=== PATIENT | female | born 1965 | race Caucasian/White ===

== ENCOUNTER 2017-11-18 06:35 | Inpatient (IN) | payer MEDICAID ==
--- NOTE | 2017-11-18 07:03 | Emergency Department Record ---
History of Present Illness - General Chief Complaint: Abdominal Pain Stated Complaint: ABDOMINAL PAIN Time Seen by Provider: 11/18/17 07:01 Source: Patient Mode of Arrival: Ambulatory Limitations: No limitations - History of Present Illness Initial Comments: The patient is here due to a 3 hour hx of sharp stabbing LLQ AP. The onset was during a colon prep for a colonoscopy that she has scheduled for 10am today. The patient did have some vomiting with it also. She denies any Cp, SOB, TORREY, or fever. The patient has had a recent hx of sigmoid diverticulitis and is being treated by Dr. Higginbotham. Complaint: Abdominal pain Onset/Timin -: Hour(s) Location: LLQ Radiation: None Severity: Mild Severity scale (1-10): 3 Quality: Stabbing Consistency: Getting worse Improves With: Rest Worsens With: Movement Associated Symptoms: Denies other symptoms - Related Data LMP (females 10-50): other Allergies Allergy/AdvReac Type Severity Reaction Status Date / Time codeine Allergy ALTERED Verified 11/18/17 06:45 MENTAL STATUS Travel Screening - Travel/Exposure Within Last 30 Days Have you traveled within the last 30 days?: No - Travel/Exposure Within Last Year Have you traveled outside the [place] in the last year?: No - Additonal Travel Details Have you been exposed to anyone with a communicable illness?: No - Travel Symptoms Symptom Screening: None Review of Systems Constitutional: Denies: Chills, Fever Eyes: Denies: Eye discharge ENT: Denies: Congestion Respiratory: Denies: Cough, Dyspnea Past Medical History - SOCIAL HISTORY Smoking Status: Never smoker Alcohol Use: Rare Drug Use: None - RESPIRATORY Hx Respiratory Disorders: No - CARDIOVASCULAR Hx Cardio Disorders: No - NEURO Hx Neuro Disorders: No - GI Hx GI Disorders: Yes Hx Diverticulitis: Yes - Hx Genitourinary Disorders: No - ENDOCRINE Hx Endocrine Disorders: No - MUSCULOSKELETAL Hx Musculoskeletal Disorders: No - PSYCH Hx Psych Problems: No - HEMATOLOGY/ONCOLOGY Hx Hematology/Oncology Disorders: No Family Medical History Any Significant Family History?: No Physical Exam - General General Appearance: Alert, Oriented x3, Cooperative, No acute distress - Head Head exam: Atraumatic, Normocephalic, Normal inspection - Eye Eye exam: Normal appearance, PERRL - Neck Neck exam: Normal inspection, Full ROM. negative: Tenderness - Respiratory Respiratory exam: Normal lung sounds bilaterally. negative: Respiratory distress - Cardiovascular Cardiovascular Exam: Regular rate, Normal rhythm, Normal heart sounds - GI/Abdominal GI/Abdominal exam: Soft, Tenderness (There is significant LLQ tenderness.). negative: Distended, Rebound, Rigid - Extremities Extremities exam: Normal inspection, Full ROM, Normal capillary refill. negative: Tenderness - Neurological Neurological exam: Alert. negative: Motor sensory deficit Course Vital Signs 11/18/17 06:40 Temperature 98.7 F Pulse Rate [ 86 Pulse Ox Probe] Respiratory 20 Rate Blood Pressure 101/62 [Left Arm] Pulse Ox 98 - Reevaluation(s) Reevaluation #1: The patient is resting comfortably and states the pain is improved. We are waiting on her CT results at this time. 11/18/17 08:15 Reevaluation #2: The patient is doing well at this time. Her pain is controlled. I did consult with Dr. Higginbotham and he does agree with the plan to admit the patient to [facility] on IV Abx's. He will consult and see the patient tomorrow. 11/18/17 08:59 Medical Decision Making - Data Complexity MDM Data: Labs Ordered and/or Reviewed, X-Ray Ordered and/or Reviewed - Lab Data Result diagrams: 11/18/17 07:12 11/18/17 07:12 - Radiology Data Radiology results: Report reviewed (CT: Sigmoid Diverticulitis, inflammatory changes LLQ, Small abscess and phlegmon. No significant change from 11/02. ) Disposition Disposition: Admit Clinical Impression: Diverticulitis large intestine Qualifiers: Diverticulitis bleeding: without bleeding Diverticulitis complication: with abscess Qualified Code(s): K57.20 - Diverticulitis of large intestine with perforation and abscess without bleeding Disposition: Still a Patient at [facility] Decision to Admit: Admit from ER Decision to Admit Date: 11/18/17 Decision to Admit Time: 09:09 Accepting Physician: Bernabe Mccann Discussed w/Accepting Physician: 09:09 Condition: (2) Stable Time of Disposition: : Quality - Quality Measures Quality Measures: N/A - Blood Pressure Screening View Details: Yes Does Patient Have Any of the Following: No Blood Pressure Classification: Normal BP Reading Systolic Measurement: 103 Diastolic Measurement: 74 Screening for High Blood Pressure: < Normal BP, F/U Not Required > [[id number]]
[2017-11-18] MEDS ORDERED: 0.9 % SODIUM CHLORIDE 1,000 ML BAG IV ONE ×2 (07:05→08:35)
[2017-11-18] MEDS ORDERED: ONDANSETRON HCL IV 4 MG/2 ML VIAL IV ONE (07:05)
[2017-11-18] MEDS ORDERED: HYDROMORPHONE HCL 2 MG/ML VIAL IVP ONE (07:07)
[2017-11-18 07:29] LABS: BASO % 0.1 % (0-6); EOS % 0.2 % (0-6); HEMATOCRIT 37.4 % (35.0-47.0); HEMOGLOBIN 12.4 gm/dl (11.6-16.0); LYMPH % 5.2 % (16-45); MEAN CELL VOLUME 90.8 fl (81-97); MEAN CORPUSCULAR HEMOGLOBIN 30.1 pg (27-33); MEAN CORPUSCULAR HGB CONC 33.2 g/dl (32-36); MEAN PLATELET VOLUME 9.7 fl (7.4-10.4); MONO % 5.9 % (0-9); PLATELET COUNT 377 K/uL (130-400); RED BLOOD COUNT 4.12 M/uL (3.80-5.40); RED CELL DISTRIBUTION WIDTH 13.6 % (11.5-14.5); WHITE BLOOD COUNT W/O DIFF 14.8 K/uL (4.2-12.2)
[2017-11-18 07:36] LABS: BLOOD UREA NITROGEN 7 mg/dL (6-20); CREATININE 0.6 mg/dL (0.5-0.9); EST GLOMERULAR FILTRATION RATE > 60 mL/min
[2017-11-18 07:37] LABS: TOTAL PROTEIN 7.7 g/dL (6.6-8.7)
[2017-11-18 07:39] LABS: GLUCOSE,RANDOM 113 mg/dL (74-109)
[2017-11-18 07:42] LABS: ALB/GLOB RATIO 1.1 (1.1-1.8); ALKALINE PHOSPHATASE 84 U/L (35-104); ALT/SGPT 18 U/L (<33); AST/SGOT 19 U/L (10.0-35.0)
[2017-11-18] MEDS ORDERED: ERTAPENEM SODIUM 1 G in 0.9 % SODIUM CHLORIDE 100ML 100 ML IVPB ONE (08:22)
[2017-11-18] MEDS ORDERED: PIPERACILLIN SODIUM/TAZOBACTAM 4.5 GM in 0.9 % SODIUM CHLORIDE 100ML 100 ML IVPB ONE (08:24)
[2017-11-18 09:47] LABS: URINE APPEARANCE CLEAR; URINE BILIRUBIN NEGATIVE (NEGATIVE); URINE BLOOD NEGATIVE (NEGATIVE); URINE COLOR YELLOW; URINE GLUCOSE (UA) NEGATIVE (NEGATIVE); URINE KETONE 15 mg/dL (NEGATIVE); URINE LEUKOCYTE ESTERASE NEGATIVE (NEGATIVE); URINE NITRITE NEGATIVE (NEGATIVE); URINE PROTEIN NEGATIVE (NEGATIVE); URINE UROBILINOGEN 0.2 E.U./dL (0.20 - 1.00)
[2017-11-18] MEDS ORDERED: ONDANSETRON HCL IV 4 MG/2 ML VIAL IVP PRN (10:08)
--- NOTE | 2017-11-18 10:45 | History & Physical ---
History of Present Illness - Date of Service Date of Service for History & Physical: 11/18/17 - History of Present Illness Admitting Diagnosis: 1. Acute Diverticulitis with Abscess History of Present Illness: Mrs. Glover is a 52 year-old female who presented to the ED this morning with complaint of sharp stabbing left lower quadrant abdominal pain for 3 hours. Onset was during her colon prep for colonoscopy that was scheduled for [address] Higginbotham. She did also report some vomiting. She denies chest pain, shortness of breath, and fever. She was recently diagnosed with diverticulitis on 10/13 and treated with cipro and flagyl, CT was repeated on . Her history includes diverticulosis and depression. In the ED, her vital signs were stable. Labs revealed WBC of 14.8, otherwise unremarkable. Abdominal CT revealed sigmoid diverticulitis, inflammatory changes to LLQ, small abscess and phlegmon No significant change from CT on 11/02. Pt. was admitted for IV antibiotics and Dr. Higginbotham was consulted by Dr. Parson and he will see pt. on 11/19/17. 11/18/17: Pt. is resting comfortably in bed. She reports improved pain (with IV dilaudid use). She has not vomited since presenting to the ED. She is tolerating clear liquids. VSS. Will plan to continue IV abx, monitoring of vital signs and labs, and surgical consult with Dr. Higginbotham tomorrow morning. PCP: Dr. Kidd General Surgery: Dr. Higginbotham Travel Screening - Travel/Exposure Within Last 30 Days Have you traveled within the last 30 days?: No - Travel/Exposure Within Last Year Have you traveled outside the [place] in the last year?: No - Additonal Travel Details Have you been exposed to anyone with a communicable illness?: No - Travel Symptoms Symptom Screening: None Review of Systems Constitutional: Denies: Chills, Fever Eyes: Denies: Eye discharge ENT: Denies: Congestion Respiratory: Denies: Cough, Dyspnea Past Medical History - SOCIAL HISTORY Smoking Status: Never smoker Alcohol Use: Rare Drug Use: None - RESPIRATORY Hx Respiratory Disorders: No - CARDIOVASCULAR Hx Cardio Disorders: No - NEURO Hx Neuro Disorders: No - GI Hx GI Disorders: Yes Hx Diverticulitis: Yes - Hx Genitourinary Disorders: No - ENDOCRINE Hx Endocrine Disorders: No - MUSCULOSKELETAL Hx Musculoskeletal Disorders: No - PSYCH Hx Psych Problems: No - HEMATOLOGY/ONCOLOGY Hx Hematology/Oncology Disorders: No Family Medical History Any Significant Family History?: No H&P Meds/Allergies - Allergies Allergies: Allergies Allergy/AdvReac Type Severity Reaction Status Date / Time codeine Allergy ALTERED Verified 11/18/17 06:45 MENTAL STATUS - Active Medications Active Medications: Current Medications Bupropion HCl (Wellbutrin Sr) 300 mg PO DAILY [facility] Hydromorphone HCl (Dilaudid) 1 mg IV Q4H PRN PRN Reason: Pain - General Sodium Chloride () 1,000 mls @ 100 mls/hr IV .Q10H PRN PRN Reason: LARGE VOLUME IV Piperacillin Sod/Tazobactam (Sod 4.5 gm/ Sodium Chloride) 100 mls @ 200 mls/hr IVPB Q8H [facility] Ondansetron HCl (Zofran) 4 mg IVP Q4H PRN PRN Reason: NAUSEA Pantoprazole Sodium (Protonix Iv) 40 mg IV DAILY [facility] Sertraline HCl (Zoloft) 50 mg PO DAILY [facility] Physical Exam - Vital Signs Vital Signs: Vital Signs - Last 24 Hrs Temp Pulse Pulse Resp BP BP Pulse Ox 11/18/17 10:10 103 H 18 103/74 97 11/18/17 08:37 107 H 18 110/68 95 11/18/17 06:40 98.7 F 86 20 101/62 98 - General General Appearance: Alert, Oriented x3, Cooperative, No acute distress Limitations: No limitations - Head Head exam: Atraumatic, Normocephalic, Normal inspection - Eye Eye exam: Normal appearance, PERRL - Neck Neck exam: Normal inspection, Full ROM. negative: Tenderness - Respiratory Respiratory exam: Normal lung sounds bilaterally. negative: Respiratory distress - Cardiovascular Cardiovascular Exam: Regular rate, Normal rhythm, Normal heart sounds - GI/Abdominal GI/Abdominal exam: Soft, Tenderness (There is significant LLQ tenderness.). negative: Distended, Rebound, Rigid - Extremities Extremities exam: Normal inspection, Full ROM, Normal capillary refill. negative: Tenderness - Neurological Neurological exam: Alert. negative: Motor sensory deficit Results - Labs Result Diagrams: 11/18/17 07:12 11/18/17 07:12 Labs Last 24 Hours: Laboratory Results - last 24 hr 11/18/17 11/18/1711/18/18 07:05 07:07 07:12 WBC 14.8 H RBC 4.12 Hgb 12.4 Hct 37.4 MCV 90.8 MCH 30.1 MCHC 33.2 RDW 13.6 Plt Count 377 MPV 9.7 Neutrophils % 92.0 H Band Neutrophils % 0.0 Lymphocytes % 5.2 L Monocytes % 5.9 Eosinophils % 0.2 Basophils % 0.1 Lymphocytes 5.0 L Monocytes 3.0 Basophils 0.0 Eosinophil Count 0.0 Sodium Potassium Chloride Carbon Dioxide Anion Gap BUN Creatinine Estimated GFR Random Glucose Calcium Total Bilirubin AST ALT Alkaline Phosphatase Total Protein Albumin Globulin Albumin/Globulin Ratio Lipase Urine Color Yellow Urine Appearance Clear Urine pH 7.0 Ur Specific [place] <= 1.005 Urine Protein Negative Urine Glucose (UA) Negative Urine Ketones 15 mg/dl H Urine Blood Negative Urine Nitrite Negative Urine Bilirubin Negative Urine Urobilinogen 0.2 Ur Leukocyte Esterase Negative Urine HCG, Qual Negative 11/18/17 11/18/17 07:12 07:12 WBC RBC Hgb Hct MCV MCH MCHC RDW Plt Count MPV Neutrophils % Band Neutrophils % Lymphocytes % Monocytes % Eosinophils % Basophils % Lymphocytes Monocytes Basophils Eosinophil Count Sodium 138 Potassium 4.9 H Chloride 95 L Carbon Dioxide 22.0 Anion Gap 21.0 H BUN 7 Creatinine 0.6 Estimated GFR > 60 Random Glucose 113 H Calcium 9.0 Total Bilirubin 0.70 AST 19 ALT 18 Alkaline Phosphatase 84 Total Protein 7.7 Albumin 4.0 Globulin 3.7 Albumin/Globulin Ratio 1.1 Lipase 20 Urine Color Urine Appearance Urine pH Ur Specific [place] Urine Protein Urine Glucose (UA) Urine Ketones Urine Blood Urine Nitrite Urine Bilirubin Urine Urobilinogen Ur Leukocyte Esterase Urine HCG, Qual VTE H&P Assessment - Risk for VTE Risk for VTE: Yes Risk Level: Low Risk Assessment Date: 11/18/17 Risk Assessment Time: 10:38 VTE Orders Placed or Will Be Placed: Yes Plan - Inpatient Certification Inpatient Certification: Admit to inpatient care: Based on my medical assessment, after consideration of patient's risk factors (age, co-morbidities and patient presenting symptoms and acuity), I expect that this patient will remain in the hospital greater than or equal to two midnights and that the services needed warrant inpatient care because: Patient Risk Factors: [failed outpatient antibiotic treatment] Estimated length of stay: 48-96 hours. The patient may reasonably be expected to be discharged or transferred to a hospital within 96 hours after admission to [facility]. Services needed: [IV antibiotics, surgical consult] Post hospital care (if known): [] I certify that my determination is in accordance with my understanding of Medicare requirements for reasonable and necessary inpatient services. 11/18/17 10:45 - Detailed Diagnosis and Plan (1) Diverticulitis large intestine Current Visit: Yes Status: Acute Qualifiers: Diverticulitis bleeding: without bleeding Diverticulitis complication: with abscess Qualified Code(s): K57.20 - Diverticulitis of large intestine with perforation and abscess without bleeding Base Code: K57.32 - DVTRCLI OF LG INT W/O PERFORATION OR ABSCESS W/O BLEEDING Comment: 11/18/17: -CT revealed sigmoid diverticulitis, inflammatory changes in LLQ, small abscess , no change from 11/02 -Dr. Higginbotham consulted, he will see pt. on 11/19/17. -Treating with IV abx: 4.5gm zosyn q8h -Zofran for nausea and dilaudid for pain -Clear liquid diet (2) At risk for deep venous thrombosis Current Visit: Yes Status: Acute Base Code: Z91.89 - OTH PERSONAL RISK FACTORS, NOT ELSEWHERE CLASSIFIED Comment: 11/18/17: -Lovenox 40mg SC ordered for DVT prophylaxis (3) Full code status Current Visit: Yes Status: Acute Base Code: Z78.9 - OTHER SPECIFIED HEALTH STATUS Comment: 11/18/17: -Pt. is a full code
[2017-11-18] MEDS: BUPROPION HCL 150 MG TAB.SR.12H PO SCH (12:14)
[2017-11-18] MEDS: PANTOPRAZOLE SODIUM IV 40 MG VIAL IV SCH (12:14)
[2017-11-18] MEDS: SERTRALINE HCL 50 MG TABLET PO SCH (12:14)
[2017-11-18] MEDS: 0.9 % SODIUM CHLORIDE 1000ML 1,000 ML IV PRN ×2 (12:15→20:52)
[2017-11-18] MEDS: PIPERACILLIN SODIUM/TAZOBACTAM 4.5 GM in 0.9 % SODIUM CHLORIDE 100ML 100 ML IVPB SCH (16:25)
[2017-11-18] MEDS: HYDROMORPHONE HCL 2 MG/ML VIAL IV PRN (16:26)
[2017-11-18] MEDS: ACETAMINOPHEN 500 MG TABLET PO PRN (22:06)
[2017-11-19] MEDS: PIPERACILLIN SODIUM/TAZOBACTAM 4.5 GM in 0.9 % SODIUM CHLORIDE 100ML 100 ML IVPB SCH ×3 (00:05→17:00)
[2017-11-19 06:42] LABS: BASO % 0.3 % (0-6); EOS % 0.9 % (0-6); GRAN % 75.8 % (47-80); HEMOGLOBIN 10.3 gm/dl (11.6-16.0); LYMPH % 13.4 % (16-45); MEAN CELL VOLUME 93.2 fl (81-97); MEAN CORPUSCULAR HGB CONC 31.2 g/dl (32-36); MEAN PLATELET VOLUME 9.6 fl (7.4-10.4); MONO % 9.6 % (0-9); PLATELET COUNT 316 K/uL (130-400); RED BLOOD COUNT 3.54 M/uL (3.80-5.40); RED CELL DISTRIBUTION WIDTH 13.8 % (11.5-14.5); WHITE BLOOD COUNT W/O DIFF 7.7 K/uL (4.2-12.2)
[2017-11-19 07:03] LABS: ALB/GLOB RATIO 1.1 (1.1-1.8); ALBUMIN 3.3 g/dL (4.0-5.0); ALKALINE PHOSPHATASE 67 U/L (35-104); ALT/SGPT 13 U/L (<33); AST/SGOT 11 U/L (10.0-35.0); BLOOD UREA NITROGEN 4 mg/dL (6-20); CREATININE 0.6 mg/dL (0.5-0.9); EST GLOMERULAR FILTRATION RATE > 60 mL/min; GLUCOSE,RANDOM 100 mg/dL (74-109); TOTAL PROTEIN 6.3 g/dL (6.6-8.7)
--- NOTE | 2017-11-19 07:22 | CT SCAN REPORT ---
EXAM: CT OF THE ABDOMEN AND PELVIS WITHOUT CONTRAST HISTORY: LOWER ABDOMINAL PAIN. TECHNIQUE: CT of the abdomen and pelvis was performed without oral or IV contrast. This limits evaluation of bowel and solid visceral organs. Comparison: 11/02/17 CT. FINDINGS: Limited evaluation of the lung bases is unremarkable. The osseous structures are grossly intact. Limited evaluation of the liver, spleen, adrenal glands, pancreas, and kidneys is unremarkable. The gallbladder is present. Liquified stool throughout the colon. Subjective wall thickening of the sigmoid colon. Multiple sigmoid diverticula. There is surrounding inflammatory change consistent with diverticulitis. Probable small abscess containing a single focus of air near the sigmoid colon is redemonstrated. This measures approximately 2.2 x 1.7 cm. There is some surrounding phlegmon as well. There is no free intraperitoneal air. Trace of free fluid is noted. Normal appendix. IMPRESSION: SIGMOID DIVERTICULITIS PERSISTS. SUSPECTED SMALL ABSCESS IS ALSO REDEMONSTRATED , SIMILAR TO THE PRIOR EXAM WITH SURROUNDING PHLEGMON. TRACE OF FREE FLUID. NO FREE INTRAPERITONEAL AIR. JOB NUMBER: [id number] MTDD
[2017-11-19] MEDS: 0.9 % SODIUM CHLORIDE 1000ML 1,000 ML IV PRN ×2 (08:02→20:11)
[2017-11-19] MEDS: HYDROMORPHONE HCL 2 MG/ML VIAL IV PRN ×3 (08:09→20:46)
[2017-11-19] MEDS: BUPROPION HCL 150 MG TAB.SR.12H PO SCH (10:10)
[2017-11-19] MEDS: SERTRALINE HCL 50 MG TABLET PO SCH (10:10)
[2017-11-19] MEDS: PANTOPRAZOLE SODIUM IV 40 MG VIAL IV SCH (10:10)
--- NOTE | 2017-11-19 17:43 | Physician Progress Note ---
Subjective - Date Date of Physician Progress Note: 11/19/17 - Subjective Subjective Comment: LLQ abdominal pain and diarrhea Pt. continues to have several "explosive" loose stools, she tolerating her clear liquid diet well and denies nausea. VSS, labs improving. Pain is mainly LLQ of abdomen. Dr. Higginbotham did review CT scans and recommends slowly advancing diet and trying PO pain medications. (tylenol 1000mg tid prn pain ordered) Location: Abdomen Radiation: Non-Radiating Improves with: Medication Worsens with: Eating Associated symptoms: Other (Diarrhea) Objective - Vital Signs Vital Signs: Vital Signs - Last 24 Hrs Temp Pulse Resp BP BP Pulse Ox 11/19/17 16:00 99.0 F 93 H 18 106/77 95 11/19/17 12:00 98.2 F 97 H 18 119/82 98 11/19/17 08:37 16 11/19/17 08:00 99.3 F 84 18 112/73 96 11/19/17 04:00 97.9 F 70 16 102/67 99 11/19/17 00:00 98.8 F 82 16 99/64 93 L 11/18/17 20:00 99.3 F 88 16 99/69 93 L - General General Appearance: Alert, Oriented x3, Cooperative, No acute distress Limitations: No limitations - Head Head exam: Atraumatic, Normocephalic, Normal inspection - Eye Eye exam: Normal appearance, PERRL - Neck Neck exam: Normal inspection, Full ROM. negative: Tenderness - Respiratory Respiratory exam: Normal lung sounds bilaterally. negative: Respiratory distress - Cardiovascular Cardiovascular Exam: Regular rate, Normal rhythm, Normal heart sounds - GI/Abdominal GI/Abdominal exam: Soft, Tenderness (There is significant LLQ tenderness.). negative: Distended, Rebound, Rigid - Extremities Extremities exam: Normal inspection, Full ROM, Normal capillary refill. negative: Tenderness - Neurological Neurological exam: Alert. negative: Motor sensory deficit Assessment and Plan - Assessment and Plan (1) Diverticulitis large intestine Current Visit: Yes Status: Acute Qualifiers: Diverticulitis bleeding: without bleeding Diverticulitis complication: with abscess Qualified Code(s): K57.20 - Diverticulitis of large intestine with perforation and abscess without bleeding Base Code: K57.32 - DVTRCLI OF LG INT W/O PERFORATION OR ABSCESS W/O BLEEDING Comment: 11/19/17: -CT revealed sigmoid diverticulitis, inflammatory changes in LLQ, small abscess , no change from 11/02 -Dr. Higginbotham consulted, he reviewed CT and recommends slowly advancing diet as tolerated -Treating with IV abx: 4.5gm zosyn q8h -Zofran for nausea and dilaudid for pain, plan to encourage tylenol 1000mg tid for pain before dilaudid -Clear liquid diet (2) At risk for deep venous thrombosis Current Visit: Yes Status: Acute Base Code: Z91.89 - OTH PERSONAL RISK FACTORS, NOT ELSEWHERE CLASSIFIED Comment: 11/19/17: -Lovenox 40mg SC ordered for DVT prophylaxis (3) Full code status Current Visit: Yes Status: Acute Base Code: Z78.9 - OTHER SPECIFIED HEALTH STATUS Comment: 11/19/17: -Pt. is a full code Results - Labs Result Diagrams: 11/19/17 06:15 11/19/17 06:15 Labs Last 24 Hours: Laboratory Results - last 24 hr 11/19/17 11/19/17 06:15 06:15 WBC 7.7 RBC 3.54 L Hgb 10.3 L Hct 33.0 L MCV 93.2 MCH 29.0 MCHC 31.2 L RDW 13.8 Plt Count 316 MPV 9.6 Gran % 75.8 Lymphocytes % 13.4 L Monocytes % 9.6 H Eosinophils % 0.9 Basophils % 0.3 Sodium 142 Potassium 3.5 Chloride 103 Carbon Dioxide 25.0 Anion Gap 14.0 BUN 4 L Creatinine 0.6 Estimated GFR > 60 Random Glucose 100 Calcium 8.1 L Total Bilirubin 0.50 AST 11 ALT 13 Alkaline Phosphatase 67 Total Protein 6.3 L Albumin 3.3 L Globulin 3.0 Albumin/Globulin Ratio 1.1 DVT/PE Assessment - Risk for VTE Risk for VTE: No Risk Level: Low Risk Assessment Date: 11/18/17 Risk Assessment Time: 10:38 VTE Orders Placed or Will Be Placed: Yes - Active Medicaitons Current Medications: Current Medications Acetaminophen (Tylenol 500mg Tab) 1,000 mg PO Q8H PRN PRN Reason: Pain - General Last Admin: 11/18/17 22:06 Dose: 1,000 mg Bupropion HCl (Wellbutrin Sr) 300 mg PO DAILY [facility] Last Admin: 11/19/17 10:10 Dose: 300 mg Hydromorphone HCl (Dilaudid) 1 mg IV Q4H PRN PRN Reason: Pain - General Last Admin: 11/19/17 14:09 Dose: 1 mg Sodium Chloride () 1,000 mls @ 100 mls/hr IV .Q10H PRN PRN Reason: LARGE VOLUME IV Last Admin: 11/19/17 08:02 Dose: 100 mls/hr Piperacillin Sod/Tazobactam (Sod 4.5 gm/ Sodium Chloride) 100 mls @ 200 mls/hr IVPB Q8H [facility] Last Admin: 11/19/17 17:00 Dose: 200 mls/hr Ondansetron HCl (Zofran) 4 mg IVP Q4H PRN PRN Reason: NAUSEA Pantoprazole Sodium (Protonix Iv) 40 mg IV DAILY [facility] Last Admin: 11/19/17 10:10 Dose: 40 mg Sertraline HCl (Zoloft) 50 mg PO DAILY [facility] Last Admin: 11/19/17 10:10 Dose: 50 mg AMI Plan - Labs Result Diagrams: 11/19/17 06:15 11/19/17 06:15
[2017-11-19] MEDS ORDERED: ENOXAPARIN 40 MG/0.4 ML SYR SQ SCH (22:00)
[2017-11-20] MEDS: PIPERACILLIN SODIUM/TAZOBACTAM 4.5 GM in 0.9 % SODIUM CHLORIDE 100ML 100 ML IVPB SCH ×2 (00:26→07:20)
[2017-11-20] MEDS: ACETAMINOPHEN 500 MG TABLET PO PRN ×2 (01:02→08:38)
[2017-11-20] MEDS: HYDROMORPHONE HCL 2 MG/ML VIAL IV PRN (01:03)
[2017-11-20 06:16] LABS: BASO % 0.3 % (0-6); EOS % 1.8 % (0-6); GRAN % 70.8 % (47-80); HEMATOCRIT 33.4 % (35.0-47.0); HEMOGLOBIN 10.5 gm/dl (11.6-16.0); LYMPH % 17.8 % (16-45); MEAN CELL VOLUME 92.8 fl (81-97); MEAN CORPUSCULAR HGB CONC 31.4 g/dl (32-36); MEAN PLATELET VOLUME 9.3 fl (7.4-10.4); MONO % 9.3 % (0-9); PLATELET COUNT 367 K/uL (130-400); RED CELL DISTRIBUTION WIDTH 13.9 % (11.5-14.5); WHITE BLOOD COUNT W/O DIFF 7.8 K/uL (4.2-12.2)
[2017-11-20 06:19] LABS: MEAN CORPUSCULAR HEMOGLOBIN 29.1 pg (27-33)
[2017-11-20 06:32] LABS: ALB/GLOB RATIO 1.1 (1.1-1.8); ALBUMIN 3.4 g/dL (4.0-5.0); ALKALINE PHOSPHATASE 70 U/L (35-104); ALT/SGPT 13 U/L (<33); AST/SGOT 12 U/L (10.0-35.0); BLOOD UREA NITROGEN 3 mg/dL (6-20); CREATININE 0.6 mg/dL (0.5-0.9); EST GLOMERULAR FILTRATION RATE > 60 mL/min; GLUCOSE,RANDOM 97 mg/dL (74-109); TOTAL PROTEIN 6.5 g/dL (6.6-8.7)
[2017-11-20] MEDS: 0.9 % SODIUM CHLORIDE 1000ML 1,000 ML IV PRN (07:21)
[2017-11-20] MEDS: SERTRALINE HCL 50 MG TABLET PO SCH (11:16)
[2017-11-20] MEDS: PANTOPRAZOLE SODIUM IV 40 MG VIAL IV SCH (11:16)
[2017-11-20] MEDS: BUPROPION HCL 150 MG TAB.SR.12H PO SCH (11:16)
--- NOTE | 2017-11-20 11:57 | Discharge Summary ---
Providers Discharge Summary Date: 11/20/17 Date of admission: 11/18/17 09:44 Expected Date of Discharge: 11/20/17 Attending physician: DEBORA KIDD Primary care physician: DEBORA KIDD Consults: Consult Orders 11/18/17 09:01 Consult NOW Consulting Provider: Spencer Higginbotham Physician Instructions: Please eval 11/19. Reason For Exam: Diverticulitis Physical Exam - Vital Signs Vital Signs: Vital Signs - Last 24 Hrs Temp Pulse Resp BP BP Pulse Ox 11/20/17 09:00 98.6 F 88 18 115/73 94 L 11/19/17 20:00 98.3 F 83 18 107/70 94 L 11/19/17 17:32 98.1 F 68 18 124/74 98 11/19/17 16:00 99.0 F 93 H 18 106/77 95 11/19/17 12:00 98.2 F 97 H 18 119/82 98 - General General Appearance: Alert, Oriented x3, Cooperative, No acute distress Limitations: No limitations - Head Head exam: Atraumatic, Normocephalic, Normal inspection - Eye Eye exam: Normal appearance, PERRL - Neck Neck exam: Normal inspection, Full ROM. negative: Tenderness - Respiratory Respiratory exam: Normal lung sounds bilaterally. negative: Respiratory distress - Cardiovascular Cardiovascular Exam: Regular rate, Normal rhythm, Normal heart sounds - GI/Abdominal GI/Abdominal exam: Soft, Hyperactive bowel sounds, Tenderness (There is significant LLQ tenderness.). negative: Distended, Rebound, Rigid - Extremities Extremities exam: Normal inspection, Full ROM, Normal capillary refill. negative: Tenderness - Neurological Neurological exam: Alert. negative: Motor sensory deficit Hospitalization - Hospitalization Admission Diagnosis: 1. Acute Diverticulitis with Abscess - Problem List/Discharge Diagnosis (1) Diverticulitis large intestine Current Visit: Yes Status: Acute Discharge Diagnosis: Diverticulitis bleeding: without bleeding Diverticulitis complication: with abscess Qualified Code(s): K57.20 - Diverticulitis of large intestine with perforation and abscess without bleeding Base Code: K57.32 - DVTRCLI OF LG INT W/O PERFORATION OR ABSCESS W/O BLEEDING Comment: 11/20/17: -CT revealed sigmoid diverticulitis, inflammatory changes in LLQ, small abscess , no change from 11/02 -Dr. Higginbotham consulted, he reviewed CT and recommends slowly advancing diet as tolerated -Pt. is tolerating advancing diet and tylenol 1000mg tid for pain management -Will plan to d/c home with continued abx therapy- cipro and flagyl (2) At risk for deep venous thrombosis Current Visit: Yes Status: Acute Base Code: Z91.89 - OTH PERSONAL RISK FACTORS, NOT ELSEWHERE CLASSIFIED Comment: 11/20/17: -No antithrombolic therapy indicated for discharge (3) Full code status Current Visit: Yes Status: Acute Base Code: Z78.9 - OTHER SPECIFIED HEALTH STATUS Comment: 11/20/17: -Pt. is a full code - Hospitalization Course Disposition: Home, Self-Care Hospital Course: Mrs. Glover is a 52 year-old female who presented to the ED this morning with complaint of sharp stabbing left lower quadrant abdominal pain for 3 hours. Onset was during her colon prep for colonoscopy that was scheduled for [address] Higginbotham. She did also report some vomiting. She denies chest pain, shortness of breath, and fever. She was recently diagnosed with diverticulitis on 10/13 and treated with cipro and flagyl, CT was repeated on . Her history includes diverticulosis and depression. In the ED, her vital signs were stable. Labs revealed WBC of 14.8, otherwise unremarkable. Abdominal CT revealed sigmoid diverticulitis, inflammatory changes to LLQ, small abscess and phlegmon No significant change from CT on 11/02. Pt. was admitted for IV antibiotics and Dr. Higginbotham was consulted by Dr. Parson and he will see pt. on 11/19/17. 11/18/17: Pt. is resting comfortably in bed. She reports improved pain (with IV dilaudid use). She has not vomited since presenting to the ED. She is tolerating clear liquids. VSS. Will plan to continue IV abx, monitoring of vital signs and labs, and surgical consult with Dr. Higginbotham tomorrow morning. 11/19/17: Pt. continues to have several "explosive" loose stools, she tolerating her clear liquid diet well and denies nausea. VSS, labs improving. Pain is mainly LLQ of abdomen. Dr. Higginbotham did review CT scans and recommends slowly advancing diet and trying PO pain medications. (tylenol 1000mg tid prn pain ordered). Pt. was also seen by furnace mechanic and dietary modifications/ management for diverticulitis were discussed. 11/20/17: Pt. is tolerating advancing diet without worsening pain. She has been using tylenol 1,000mg tid for pain management since yesterday. She does continue to have several loose stools with cramping, however, her labs and vital signs remain stable. Will plan to discharge home with continued abx therapy (cipro and flagyl). PCP: Dr. Kidd General Surgery: Dr. Higginbotham Procedures: Imaging and X-Rays 11/18/17 07:29 ABDOMEN/PELVIS WO CONTRAST [CT] Stat Abnormal Labs: Abnormal Lab Results 11/18/17 11/18/17 11/18/17 Range/Units 07:05 07:12 07:12 WBC 14.8 H (4.2-12.2) K/uL RBC (3.80-5.40) M/uL Hgb (11.6-16.0) gm/dl Hct (35.0-47.0) % MCHC (32-36) g/dl Neutrophils % 92.0 H (47-80) % Lymphocytes % 5.2 L (16-45) % Monocytes % (0-9) % Lymphocytes 5.0 L (16-45) % Potassium 4.9 H (3.4-4.5) mmol/L Chloride 95 L (98-107) mmol/L Anion Gap 21.0 H (7-16) BUN (6-20) mg/dL Random Glucose 113 H (74-109) mg/dL Calcium (8.6-10.0) mg/dL Total Protein (6.6-8.7) g/dL Albumin (4.0-5.0) g/dL Urine Ketones 15 mg/dl H (NEGATIVE) 11/19/17 11/19/17 11/20/17 Range/Units 06:15 06:15 06:00 WBC (4.2-12.2) K/uL RBC 3.54 L 3.60 L (3.80-5.40) M/uL Hgb 10.3 L 10.5 L (11.6-16.0) gm/dl Hct 33.0 L 33.4 L (35.0-47.0) % MCHC 31.2 L 31.4 L (32-36) g/dl Neutrophils % (47-80) % Lymphocytes % 13.4 L (16-45) % Monocytes % 9.6 H 9.3 H (0-9) % Lymphocytes (16-45) % Potassium (3.4-4.5) mmol/L Chloride (98-107) mmol/L Anion Gap (7-16) BUN 4 L (6-20) mg/dL Random Glucose (74-109) mg/dL Calcium 8.1 L (8.6-10.0) mg/dL Total Protein 6.3 L (6.6-8.7) g/dL Albumin 3.3 L (4.0-5.0) g/dL Urine Ketones (NEGATIVE) 11/20/17 Range/Units 06:00 WBC (4.2-12.2) K/uL RBC (3.80-5.40) M/uL Hgb (11.6-16.0) gm/dl Hct (35.0-47.0) % MCHC (32-36) g/dl Neutrophils % (47-80) % Lymphocytes % (16-45) % Monocytes % (0-9) % Lymphocytes (16-45) % Potassium 3.3 L (3.4-4.5) mmol/L Chloride (98-107) mmol/L Anion Gap (7-16) BUN 3 L (6-20) mg/dL Random Glucose (74-109) mg/dL Calcium 8.3 L (8.6-10.0) mg/dL Total Protein 6.5 L (6.6-8.7) g/dL Albumin 3.4 L (4.0-5.0) g/dL Urine Ketones (NEGATIVE) Condition at Discharge: (2) Stable Discharge Medications - Discharge Medications Prescriptions: Metronidazole 500 mg PO Q8HR 7 Days #21 tablet Ciprofloxacin HCl [Cipro] 500 mg PO Q12HR #14 tablet Home Medications: Ambulatory Orders Acetaminophen [Tylenol 500Mg Tab] 1,000 mg PO Q8H PRN tablet 11/20/17 [Last Taken Unknown] Ciprofloxacin HCl [Cipro] 500 mg PO Q12HR #14 tablet 11/20/17 [Last Taken Unknown] Metronidazole 500 mg PO Q8HR 7 Days #21 tablet 11/20/17 [Last Taken Unknown] Discharge Plan - Discharge Instructions Activity at Discharge: Increase Activity as Tolerated Diet at Discharge: Advance to Usual Diet Additional Instructions: Continue to advance diet slowly as tolerated Complete both courses of antibiotics- cipro and flagyl Follow up with Dr. Kidd within 7-10 days Return to the ED if your symptoms worsen, if you notice any blood in your stool , or if you have any chest pain Quality Measures - Quality Measures Quality Measures: Documentation of Current Medications in Medical Record, Screening for High Blood Pressure and F/U Documented - Current Medications Quality Measure: Measure #130: Documentation of Current Medications Documentation of Current Medications: <Current Medications Documented/Reviewed> [G8427] - Blood Pressure Screening Quality Measure: Screening for High Blood Pressure and Follow-Up Documented Does Patient Have Any of the Following: No Blood Pressure Classification: Normal BP Reading Systolic Measurement: 113 Diastolic Measurement: 68 Screening for High Blood Pressure: < Normal BP, F/U Not Required > [G8783] - Elder Abuse Suspicion Index EASI Reference Information: Phylicia GATES, Kimberly C, Sherice D, Lolly Swanson.Development and validation of a tool to assist physicians identification of elder abuse: The Elder Abuse Suspicion Index (EASI ). Journal of Elder Abuse and Neglect, 2008; 20 (3): 276-300.
[2017-11-20] MEDS ORDERED: METRONIDAZOLE 250 MG TABLET PO SCH (12:45)
[2017-11-20] MEDS ORDERED: CIPROFLOXACIN HCL 500 MG TABLET PO SCH (22:00)
== END 2017-11-20 13:08 | disposition home or self-care (01) | DRG 392 ==
LOC: ER 06:35 → MEDSURG 09:44
PROVIDERS: ADMIT Internal Medicine; ATTEND Internal Medicine
DX: K57.20 Diverticulitis of large intestine with perforation and abscess without bleeding (principal)
CPT/HCPCS: 74176; 80053; 81003; 81025; 83690; 85025; 85027; 96361; 96365; 96375; 99223; 99233; 99239; 99285; C9113; J1650; J2405; J2543; J3490; J7030

== ENCOUNTER 2017-11-25 13:22 | Emergency (ER) | payer MEDICAID ==
[2017-11-25] MEDS ORDERED: ONDANSETRON HCL IV 4 MG/2 ML VIAL IVP ONE (14:26)
[2017-11-25 14:44] LABS: BASO % 0.1 % (0-6); EOS % 0.1 % (0-6); HEMATOCRIT 41.4 % (35.0-47.0); LYMPH % 6.6 % (16-45); MEAN CELL VOLUME 89.2 fl (81-97); MEAN CORPUSCULAR HEMOGLOBIN 30.2 pg (27-33); MEAN CORPUSCULAR HGB CONC 33.8 g/dl (32-36); MEAN PLATELET VOLUME 8.5 fl (7.4-10.4); MONO % 4.3 % (0-9); PLATELET COUNT 565 K/uL (130-400); RED BLOOD COUNT 4.64 M/uL (3.80-5.40); RED CELL DISTRIBUTION WIDTH 14.7 % (11.5-14.5); WHITE BLOOD COUNT W/O DIFF 13.2 K/uL (4.2-12.2)
[2017-11-25 14:56] LABS: BLOOD UREA NITROGEN 8 mg/dL (6-20); CREATININE 0.5 mg/dL (0.5-0.9); EST GLOMERULAR FILTRATION RATE > 60 mL/min
[2017-11-25 14:59] LABS: GLUCOSE,RANDOM 120 mg/dL (74-109)
--- NOTE | 2017-11-25 17:19 | Emergency Department Record ---
History of Present Illness - General Chief Complaint: Abdominal Pain Stated Complaint: ABDOMINLA PAIN,NAUSEA,VOMITING Time Seen by Provider: 11/25/17 14:04 Source: Patient Mode of Arrival: Ambulatory Limitations: No limitations - History of Present Illness Initial Comments: pt was admitted for diverticulitis and is now on cipro and flagyl. she had an increase in her pain today along with n/v. she has been on her abx for a week. she also states her abd is distended MD Complaint: Abdominal pain Onset/Timin -: Days(s) Location: Diffuse Radiation: Back Severity: Moderate Severity scale (1-10): 6 Quality: Other Consistency: Constant Improves With: Nothing Worsens With: Nothing Associated Symptoms: Nausea, Vomiting - Related Data Patient : No Previous Rx's Medication Instructions Recorded Acetaminophen [Tylenol 500Mg Tab] 1,000 mg PO Q8H PRN tablet 11/20/17 Ciprofloxacin HCl [Cipro] 500 mg PO Q12HR #14 tablet 11/20/17 Metronidazole 500 mg PO Q8HR 7 Days #21 tablet 11/20/17 Allergies Allergy/AdvReac Type Severity Reaction Status Date / Time codeine Allergy ALTERED Verified 11/25/17 13:37 MENTAL STATUS Travel Screening - Travel/Exposure Within Last 30 Days Have you traveled within the last 30 days?: No - Travel/Exposure Within Last Year Have you traveled outside the [place] in the last year?: No - Additonal Travel Details Have you been exposed to anyone with a communicable illness?: No - Travel Symptoms Symptom Screening: None Review of Systems Reviewed: No additional complaints except as noted below Constitutional: Reports: As per HPI. Denies: Chills, Fever, Malaise, Night sweats, Weakness, Weight change Eyes: Reports: As per HPI. Denies: Eye discharge, Eye pain, Photophobia, Vision change ENT: Reports: As per HPI. Denies: Congestion, Dental pain, Ear pain, Epistaxis , Hearing loss, Throat pain Respiratory: Reports: As per HPI. Denies: Cough, Dyspnea, Hemoptysis, Stridor, Wheezes Cardiovascular: Reports: As per HPI. Denies: Arrhythmia, Chest pain, Dyspnea on exertion, Edema, Murmurs, Orthopnea, Palpitations, Paroxysmal nocturnal dyspnea, Rheumatic Fever, Syncope Endocrine: Reports: As per HPI. Denies: Fatigue, Heat or cold intolerance, Polydipsia, Polyuria Gastrointestinal: Reports: As per HPI, Abdominal pain, Nausea, Vomiting. Denies : Constipation, Diarrhea, Hematemesis, Hematochezia, Melena Genitourinary: Reports: As per HPI. Denies: Abnormal menses, Discharge, Dyspareunia, Dysuria, Frequency, Hematuria, Incontinence, Retention, Urgency Musculoskeletal: Reports: As per HPI. Denies: Arthralgia, Back pain, Gout, Joint swelling, Myalgia, Neck pain Skin: Reports: As per HPI. Denies: Bruising, Change in color, Change in hair/ nails, Lesions, Pruritus, Rash Neurological: Reports: As per HPI. Denies: Abnormal gait, Confusion, Headache, Numbness, Paresthesias, Seizure, Tingling, Tremors, Vertigo, Weakness Psychiatric: Reports: As per HPI. Denies: Anxiety, Auditory hallucinations, Depression, Homicidal thoughts, Suicidal thoughts, Visual hallucinations Hematological/Lymphatic: Reports: As per HPI. Denies: Anemia, Blood Clots, Easy bleeding, Easy bruising, Swollen glands Past Medical History - SOCIAL HISTORY Smoking Status: Never smoker Alcohol Use: Occasional Drug Use: None - RESPIRATORY Hx Respiratory Disorders: No - CARDIOVASCULAR Hx Cardio Disorders: No - NEURO Hx Neuro Disorders: No - GI Hx GI Disorders: Yes Hx Diverticulitis: Yes - Hx Genitourinary Disorders: No - ENDOCRINE Hx Endocrine Disorders: No - MUSCULOSKELETAL Hx Musculoskeletal Disorders: No - PSYCH Hx Psych Problems: No - HEMATOLOGY/ONCOLOGY Hx Hematology/Oncology Disorders: No Family Medical History Any Significant Family History?: No Physical Exam - General General Appearance: Alert, Oriented x3, Cooperative, Mild distress - Head Head exam: Normal inspection - Eye Eye exam: Normal appearance, PERRL, EOMI Pupils: Normal accommodation - ENT ENT exam: Normal exam, Mucous membranes moist, Normal external ear exam, Normal orophraynx Ear exam: Normal external inspection. negative: External canal tenderness Nasal Exam: Normal inspection. negative: Discharge, Sinus tenderness Mouth exam: Normal external inspection, Tongue normal Teeth exam: Normal inspection. negative: Dental caries Throat exam: Normal inspection. negative: Tonsillar erythema, Tonsillar exudate - Neck Neck exam: Normal inspection, Full ROM. negative: Tenderness - Respiratory Respiratory exam: Normal lung sounds bilaterally. negative: Respiratory distress - Cardiovascular Cardiovascular Exam: Normal rhythm, Normal heart sounds, Tachycardia - GI/Abdominal GI/Abdominal exam: Soft, Normal bowel sounds, Distended, Tenderness - Rectal Rectal exam: Deferred - exam: Deferred - Extremities Extremities exam: Normal inspection, Full ROM, Normal capillary refill. negative: Tenderness - Back Back exam: Reports: Normal inspection, Full ROM. Denies: Muscle spasm, Rash noted, Tenderness - Neurological Neurological exam: Alert, CN II-XII intact, Normal gait, Oriented X3 - Psychiatric Psychiatric exam: Normal affect, Normal mood - Skin Skin exam: Dry, Intact, Normal color, Warm Course Vital Signs 11/25/17 11/25/17 13:50 17:05 Temperature 98.4 F Pulse Rate 105 H Pulse Rate [ 83 Left] Respiratory 18 18 Rate Blood Pressure 135/100 Blood Pressure 149/102 [Left Arm] Pulse Ox 97 98 Medical Decision Making - Lab Data Result diagrams: 11/25/17 14:25 11/25/17 14:25 Lab Results 11/25/17 11/25/17 Range/Units 14:25 14:25 WBC 13.2 H (4.2-12.2) K/uL RBC 4.64 (3.80-5.40) M/uL Hgb 14.0 (11.6-16.0) gm/dl Hct 41.4 (35.0-47.0) % MCV 89.2 (81-97) fl MCH 30.2 (27-33) pg MCHC 33.8 (32-36) g/dl RDW 14.7 H (11.5-14.5) % Plt Count 565 H (130-400) K/uL MPV 8.5 (7.4-10.4) fl Neutrophils % 90.0 H (47-80) % Band Neutrophils % 0.0 (0-5) % Lymphocytes % 6.6 L (16-45) % Monocytes % 4.3 (0-9) % Eosinophils % 0.1 (0-6) % Basophils % 0.1 (0-6) % Lymphocytes 6.0 L (16-45) % Monocytes 4.0 (0-9) % Basophils 0.0 (0-6) % Eosinophil Count 0.0 (0-6) % Sodium 141 (136-145) mmol/L Potassium 3.3 L (3.4-4.5) mmol/L Chloride 96 L (98-107) mmol/L Carbon Dioxide 25.0 (22-29) mmol/L Anion Gap 20.0 H (7-16) BUN 8 (6-20) mg/dL Creatinine 0.5 (0.5-0.9) mg/dL Estimated GFR > 60 mL/min Random Glucose 120 H (74-109) mg/dL Calcium 8.7 (8.6-10.0) mg/dL Disposition Disposition: Transfer Clinical Impression: Diverticulitis Bowel obstruction Qualifiers: Intestinal obstruction type: other intestinal obstruction Intestinal obstruction extent: complete Qualified Code(s): K56.691 - Other complete intestinal obstruction Disposition: Acute Care Hospital Transfer Transfer To: [facility] Reason For Transfer: needs surgeon Accepting Physician: dr billy Time Discussed w/Accepting Physician: 17:34 Forms: Patient Portal Access Quality - Quality Measures Quality Measures: N/A - Blood Pressure Screening Does Patient Have Any of the Following: No Blood Pressure Classification: Hypertensive Reading Systolic Measurement: 135 Diastolic Measurement: 100 Screening for High Blood Pressure: < First Hypertensive BP, F/U Documented > [ G8950] First Hypertensive Follow-up Interventions: Follow-up with rescreen GT 1 day and LT 4 weeks.
[2017-11-25] MEDS ORDERED: HYDROMORPHONE HCL 2 MG/ML VIAL IVP ONE (18:01)
--- NOTE | 2017-11-27 08:56 | CT SCAN REPORT ---
DATE: 11/25/2017 at 4:25 p.m. EXAM: EMERGENCY CT OF THE ABDOMEN AND PELVIS WITH CONTRAST. HISTORY: Abdominal pain with elevated white blood count. Recent diverticulitis. TECHNIQUE: Axial CT scan of the abdomen and pelvis obtained following both oral and intravenous contrast administration utilizing a dose of 100 mL of Omnipaque 300 for the intravenous contrast. COMPARISON: CT of the abdomen and pelvis dated 11/18/2017. FINDINGS: No calcified gallstones are seen within the gallbladder. No definite hepatic, splenic, adrenal, pancreatic, or renal mass identified. Findings of diverticulitis noted in the sigmoid colon on the prior study are again seen. There is probably a very small residual peridiverticular abscess today measuring about 1.6 cm in size and some mild residual blurring of the sofia of the involved sigmoid colon with a small amount of free fluid in the pelvis similar to before. However, there is dilatation of the colon proximal to the area of diverticulitis with the diverticulitis apparently resulting in a component of obstruction to the colon proximal to this with the colon largely filled with liquid stool and with distension of the colon proximal to this greatest in the region of the lower ascending colon and cecum measuring up to about 8.2 cm in diameter. This degree of distension of the colon proximal to the site of diverticulitis has progressed somewhat from the prior study. Mild bibasilar streaky atelectasis or infiltrate, slightly more pronounced in the left base today compared to the prior study. No free intraperitoneal air evident. Prominent posterior spur at the L2-3 interspace with some mild bulging of the anulus at this level, probably causing some impingement on the anterior aspect of the thecal sac at this level. Similar appearance present previously. IMPRESSION: 1. PERSISTENT FINDINGS OF DIVERTICULITIS IN THE SIGMOID COLON WITH A SMALL RESIDUAL PERIDIVERTICULAR ABSCESS ABOUT 1.6 CM IN SIZE. 2. APPARENT OBSTRUCTION OF THE COLON AT THE LEVEL OF THE DIVERTICULITIS WITH THE COLON PROXIMAL TO THIS DISTENDED AND LARGELY FLUID FILLED DESCRIBED ABOVE. 3. A SMALL AMOUNT OF FREE FLUID IN THE PELVIS SIMILAR TO BEFORE. NO FREE AIR EVIDENT. 4. PROMINENT SPUR AT THE L2-3 LEVEL POSTERIORLY DESCRIBED ABOVE. JOB NUMBER: [id number] MTDD
== END 2017-11-25 18:49 | disposition short-term general hospital (02) ==
LOC: ER 13:22
DX: K56.691 Other complete intestinal obstruction (principal); K57.31 Diverticulosis of large intestine without perforation or abscess with bleeding; R11.2 Nausea with vomiting, unspecified
CPT/HCPCS: 99285 ×2; 96374; 96375; 80048; 85027; 74177; Q9967; J2405; J1170

== ENCOUNTER 2018-04-20 09:00 | Emergency (ER) | payer MEDICAID ==
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
[2018-04-20 10:19] LABS: BASO % 0.2 % (0-6); EOS % 1.7 % (0-6); GRAN % 62.1 % (47-80); HEMATOCRIT 41.9 % (35.0-47.0); HEMOGLOBIN 13.7 gm/dl (11.6-16.0); LYMPH % 28.3 % (16-45); MEAN CELL VOLUME 91.7 fl (81-97); MEAN CORPUSCULAR HGB CONC 32.7 g/dl (32-36); MONO % 7.7 % (0-9); PLATELET COUNT 296 K/uL (130-400); RED BLOOD COUNT 4.57 M/uL (3.80-5.40); RED CELL DISTRIBUTION WIDTH 12.9 % (11.5-14.5); WHITE BLOOD COUNT W/O DIFF 4.8 K/uL (4.2-12.2)
[2018-04-20 10:28] LABS: BLOOD UREA NITROGEN 17 mg/dL (6-20); CREATININE 0.9 mg/dL (0.5-0.9); EST GLOMERULAR FILTRATION RATE > 60 mL/min
[2018-04-20 10:31] LABS: GLUCOSE,RANDOM 92 mg/dL (74-109)
[2018-04-20 10:46] LABS: INR 1.1; PARTIAL THROMBOPLASTIN TIME 30.4 SECONDS (24.5-39.1); PROTHROMBIN TIME (PATIENT) 10.7 SECONDS (9.5-12.1)
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
== END 2018-04-20 10:53 | disposition home or self-care (01) ==
LOC: ER 09:00
DX: S00.83XA Contusion of other part of head, initial encounter (principal); Y04.2XXA Assault by strike against or bumped into by another person, initial encounter; Z86.718 Personal history of other venous thrombosis and embolism; Z79.01 Long term (current) use of anticoagulants
CPT/HCPCS: 70450; 80048; 85025; 85610; 85730; 99283; 99284

== ENCOUNTER 2018-04-26 22:12 | Emergency (ER) | payer MEDICAID ==
[2018-04-26] MEDS ORDERED: MORPHINE SULFATE 10 MG/ML VIAL IVP ONE (22:20)
[2018-04-26] MEDS ORDERED: ONDANSETRON HCL IV 4 MG/2 ML VIAL IVP ONE (22:20)
--- NOTE | 2018-04-26 22:25 | Emergency Department Record ---
History of Present Illness - General Chief Complaint: Abdominal Pain Stated Complaint: ABD PAIN Time Seen by Provider: 04/26/18 22:13 Source: Patient Mode of Arrival: Ambulatory Limitations: No limitations - History of Present Illness Initial Comments: 52 yo female presents to ED for evaluation of diffuse abdominal pain and vomiting symptoms that began this evening. Patient reports previous symptoms related to diverticulitis, also reports a partial colectomy s/p iliostomy (11/22 ) and reversal (02/22). Patient denies fevers, chills, or urinary symptoms. MD Complaint: Abdominal pain Onset/Timin -: Hour(s) Location: Diffuse Radiation: None Severity: Severe Quality: Cramping Consistency: Constant Improves With: Nothing Worsens With: Nothing Associated Symptoms: Nausea, Vomiting - Related Data Patient : No Home Medications Medication Instructions Recorded Confirmed Last Taken Cholecalciferol (Vitamin D3) 1 tab PO WEEKLY 04/26/18 04/26/18 Unknown [Vitamin D3] Allergies Allergy/AdvReac Type Severity Reaction Status Date / Time codeine Allergy ALTERED Verified 04/26/18 22:26 MENTAL STATUS Review of Systems Constitutional: Denies: Chills, Fever, Malaise, Night sweats Eyes: Denies: Eye discharge, Eye pain ENT: Denies: Congestion, Ear pain, Epistaxis Respiratory: Denies: Cough, Dyspnea Cardiovascular: Denies: Chest pain, Dyspnea on exertion Endocrine: Denies: Fatigue, Heat or cold intolerance Gastrointestinal: Reports: Abdominal pain, Nausea Genitourinary: Denies: Incontinence, Retention Musculoskeletal: Denies: Arthralgia, Back pain Skin: Denies: Bruising, Change in color Neurological: Denies: Abnormal gait, Confusion, Headache, Seizure Psychiatric: Denies: Anxiety Hematological/Lymphatic: Reports: Blood Clots, Easy bleeding, Easy bruising. Denies: Anemia Past Medical History - SOCIAL HISTORY Smoking Status: Never smoker Drug Use: None - RESPIRATORY Hx Respiratory Disorders: No - CARDIOVASCULAR Hx Cardio Disorders: No - NEURO Hx Neuro Disorders: No - GI Hx GI Disorders: Yes Hx Diverticulitis: Yes - Hx Genitourinary Disorders: No - ENDOCRINE Hx Endocrine Disorders: No - MUSCULOSKELETAL Hx Musculoskeletal Disorders: No - PSYCH Hx Psych Problems: No - HEMATOLOGY/ONCOLOGY Hx Hematology/Oncology Disorders: No Physical Exam - General General Appearance: Alert, Oriented x3, Cooperative, Moderate distress Limitations: No limitations - Head Head exam: Atraumatic, Normocephalic, Normal inspection Head exam detail: negative: Abrasion, Contusion, Harris's sign, General tenderness, Hematoma, Laceration - Eye Eye exam: Normal appearance. negative: Conjunctival injection, Periorbital swelling, Periorbital tenderness, Scleral icterus - ENT Ear exam: negative: Auricular hematoma, Auricular trauma Nasal Exam: negative: Active bleeding, Discharge, Dried blood, Foreign body Mouth exam: negative: Drooling, Laceration, Muffled voice, Tongue elevation - Neck Neck exam: Normal inspection. negative: Meningismus, Tenderness - Respiratory Respiratory exam: Normal lung sounds bilaterally. negative: Rales, Respiratory distress, Rhonchi, Stridor - Cardiovascular Cardiovascular Exam: Regular rate, Normal rhythm, Normal heart sounds - GI/Abdominal GI/Abdominal exam: Soft, Tenderness, Other (Moder TTP RLQ, RUQ on examination). negative: Rebound, Rigid - Rectal Rectal exam: Deferred - exam: Deferred - Extremities Extremities exam: Normal inspection. negative: Pedal edema, Tenderness - Back Back exam: Denies: CVA tenderness (R), CVA tenderness (L) - Neurological Neurological exam: Alert, Normal gait, Oriented X3 - Psychiatric Psychiatric exam: Normal affect, Normal mood - Skin Skin exam: Normal color. negative: Abrasion Type of lesion: negative: abrasion Course Vital Signs 04/26/18 22:17 Temperature 98.7 F Pulse Rate [ 106 H Pulse Ox Probe] Respiratory 24 Rate Blood Pressure 119/89 [Left Arm] Pulse Ox 100 - Reevaluation(s) Reevaluation #1: 04/26/18 23:02 Laboratory studies were reviewed, AG 18, labs are otherwise grossly unremarkable for an acute process. Patient is in CT at this time. Reevaluation #2: 04/26/18 23:15 Patient was updated on all results, reports that her pain symptoms are greatly improved. Awaiting CT imaging results. Reevaluation #3: 04/26/18 23:39 CT Abdomen and Pelvis: SBO with transition point RLQ in hector region of small bowerl anastamosis Diverticulosis Small hiatal hernia Moderate supraumbilical hernia containing non-obstructing small bowel loops Dr. Higginbotham paged for consultation. Reevaluation #4: 04/26/18 23:42 Case was discussed with Dr. Higginbotham, will transfer to [facility] for admission. Medical Decision Making - Lab Data Result diagrams: 04/26/18 22:29 04/26/18 22:29 Disposition Disposition: Transfer Clinical Impression: SBO (small bowel obstruction), History of partial colectomy Transfer To: [facility] Reason For Transfer: Surgical consultation Accepting Physician: Neftaly Time Discussed w/Accepting Physician: 23:42 Condition: (2) Stable Forms: Patient Portal Access Time of Disposition: 23:42 Quality - Quality Measures Quality Measures: N/A - Blood Pressure Screening Does Patient Have Any of the Following: No Blood Pressure Classification: Pre-Hypertensive BP Reading Systolic Measurement: 119 Diastolic Measurement: 89 Screening for High Blood Pressure: < Pre-Hypertensive BP, F/U Documented > [ G8950] Pre-Hypertensive Follow-up Interventions: Referral to alternative/primary care provider.
[2018-04-26] MEDS ORDERED: 0.9 % SODIUM CHLORIDE 1000ML 1,000 ML IV SCH (22:30)
[2018-04-26 22:36] LABS: BASO % 0.1 % (0-6); EOS % 0.5 % (0-6); GRAN % 79.7 % (47-80); HEMATOCRIT 43.2 % (35.0-47.0); HEMOGLOBIN 14.1 gm/dl (11.6-16.0); LYMPH % 15.7 % (16-45); MEAN CORPUSCULAR HEMOGLOBIN 29.4 pg (27-33); MEAN CORPUSCULAR HGB CONC 32.6 g/dl (32-36); MEAN PLATELET VOLUME 9.8 fl (7.4-10.4); PLATELET COUNT 352 K/uL (130-400)
[2018-04-26 22:44] LABS: BLOOD UREA NITROGEN 18 mg/dL (6-20); EST GLOMERULAR FILTRATION RATE > 60 mL/min
[2018-04-26 22:45] LABS: TOTAL PROTEIN 8.1 g/dL (6.6-8.7)
[2018-04-26 22:47] LABS: GLUCOSE,RANDOM 159 mg/dL (74-109)
[2018-04-26 22:49] LABS: ALT/SGPT 18 U/L (<33)
[2018-04-26 22:50] LABS: ALB/GLOB RATIO 1.5 (1.1-1.8); ALBUMIN 4.8 g/dL (4.0-5.0); ALKALINE PHOSPHATASE 86 U/L (35-104); AST/SGOT 19 U/L (10.0-35.0); LIPASE 26 U/L (13-60)
[2018-04-26] MEDS ORDERED: HYOSCYAMINE SULFATE ODT 0.125 MG TAB.SUBL SL ONE (23:12)
--- NOTE | 2018-04-27 15:15 | CT SCAN REPORT ---
EXAM: EMERGENCY CT SCAN OF THE ABDOMEN AND PELVIS WITH CONTRAST HISTORY: ABDOMINAL PAIN, NAUSEA AND VOMITING FOR FIVE HOURS. HAD PRIOR ILEOSTOMY WITH SUBSEQUENT REVERSAL EARLIER THIS YEAR. TECHNIQUE: Axial CT scan of the abdomen and pelvis was performed following the intravenous administration of Iodated contrast media. No oral contrast utilized at the referring physician's request. A preliminary report was provided by [facility]. Comparison: CT of the abdomen and pelvis 11/25/17. FINDINGS: No calcified gallstones are seen within the gallbladder. There is a single tiny low attenuation focus superficially in the right lobe of the liver, too small to accurately characterize, but was probably present previously as well and is likely just a tiny hepatic cyst. No definite splenic, adrenal, pancreatic, or renal mass identified. Small hiatal hernia. There is a new anastomosis in the region of the sigmoid colon and the diverticulitis and small peridiverticular abscess in the sigmoid region seen previously is no longer apparent. The distention of the colon proximal to the sigmoid colon seen previously is also no longer evident. The colon appears nondistended throughout. Evaluation of the bowel is somewhat limited without oral contrast. No appendicitis evident. The terminal ileum is nondistended, however, there is dilatation of numerous small bowel loops including the jejunum and portions of the ileum. Transition point appears to be at the site of a small bowel anastomosis in the right lower quadrant with the small bowel distal to the anastomosis nondistended and the small bowel leaning to the anastomosis having some fecalization of the small bowel content consistent with obstruction as well. There is an anterior abdominal wall hernia just superior to the level of the umbilicus that contains some small bowel that is dilated, but this does not appear to be the point of obstruction. A couple tiny anterior abdominal wall hernias just superior to this as well contain just adipose tissue. No free intraperitoneal air or free intraperitoneal fluid identified. IMPRESSION: 1. NEW POSTOP CHANGES IN THE SIGMOID COLON SINCE 11/25/17 WITH PREVIOUSLY SEEN FINDINGS OF DIVERTICULITIS AND SMALL PERIDIVERTICULAR ABSCESS NO LONGER APPARENT. ASSOCIATED OBSTRUCTION OF THE COLON PROXIMAL TO THE SITE OF THE SIGMOID DIVERTICULITIS PREVIOUSLY HAS ALSO RESOLVED. 2. THERE IS NEW SMALL BOWEL OBSTRUCTION TO THE POINT OF OBSTRUCTION APPEARING TO BE IN THE REGION OF THE SMALL BOWEL ANASTOMOSIS IN THE RIGHT LOWER QUADRANT. 3. THERE IS A SMALL ANTERIOR ABDOMINAL WALL HERNIA JUST SUPERIOR TO THE UMBILICUS CONTAINING SOME DILATED SMALL BOWEL ALTHOUGH THIS DOES NOT APPEAR TO BE THE POINT OF OBSTRUCTION. THERE ARE A COUPLE VERY TINY ANTERIOR ABDOMINAL WALL HERNIAS JUST SUPERIOR TO THIS WELL CONTAINING ONLY ADIPOSE TISSUE. 4. SMALL HIATAL HERNIA. 5. PROBABLE TINY SUPERFICIAL CYST IN THE LIVER. [facility]BER: [id number] [facility]
== END 2018-04-27 00:23 | disposition short-term general hospital (02) ==
LOC: ER 22:12
DX: K56.600 Partial intestinal obstruction, unspecified as to cause (principal); R11.2 Nausea with vomiting, unspecified
CPT/HCPCS: 74177; 80053; 83690; 85025; 96361; 96374; 96375; 99285; J2270; J2405; J7030

== ENCOUNTER → 2018-07-04 | Day surgery (SDC) | payer MEDICAID ==
[~2018-07-04] MED LIST: ACETAMINOPHEN 1,000 MG/100 ML BTL IV ONE; BUPIVACAINE 0.25% MPF 30ML VIAL IVP ONE; BUPIVACAINE 0.25% W/EPI MPF 30ML VIAL IVP ONE; BUPIVACAINE LIPOSOME 266MG/20ML VIAL IV ONE; CEFAZOLIN 2 Gram 2 GM/50 ML BAG IVPB ONE; DESFLURANE 240 ML BTL INH ONE; DEXAMETHASONE 4 MG/ML 1ML VIAL IVP ONE; FAMOTIDINE 20MG TABLET PO ONE; FENTANYL PF 100MCG/2ML VIAL IV ONE; HYDROCODONE/APAP 5/325MG TABLET PO ONE; HYDROMORPHONE HCL 2 MG/ML VIAL IV ONE; LIDOCAINE 2% MDV (20MG/ML) 20ML VIAL IV ONE; MECLIZINE 25 MG TABLET PO ONE; METOCLOPRAMIDE 10 MG TABLET PO ONE; MIDAZOLAM HCL 2MG/2ML VIAL IV ONE; ONDANSETRON HCL IV 4 MG/2 ML VIAL IVP ONE; PROPOFOL 10 MG/ML VIAL IV ONE
--- NOTE | 2018-07-04 14:50 | Operative Note ---
DATE OF SURGERY: 07/04/2018 Surgeon: Spencer Higginbotham DO PREOPERATIVE DIAGNOSIS: Incisional hernia. POSTOPERATIVE DIAGNOSIS: Incisional hernia. OPERATION: 1. Lysis of adhesions for 1.5 hours. 2. Laparoscopic incisional hernia repair with mesh. Indication: The patient is a 52-year-old female who underwent prior Perez's procedure with subsequent reversal. She did develop a midline hernia. We did discuss repair. Risks, benefits, and alternatives were discussed. Preoperative imaging did reveal a non-obstructing 4.5 cm hernia. Risks include bleeding, infection, bowel injury, missed or delayed bowel injury, need for delayed or repeat operation. She understood this fully. Thereafter, consent was signed and questions answered. PROCEDURE: The patient was taken to the operating room and placed in a supine position. General anesthesia was administered per the department of anesthesia. The patient's arm was tucked to the side and her abdomen was prepped and draped in the usual fashion. Orogastric tube was placed per department of anesthesia. She did receive preoperative antibiotics as well as DVT prophylaxis. The left upper quadrant region was cannulated with an 11 mm Visiport. All abdominal layers were traversed under direct visualization. Our visualization was somewhat limited but I could see right upper quadrant. Therefore, additional 5 mm right upper quadrant port was placed. Through this, adhesiolysis was done. There were mainly just omental attachments to the anterior abdominal wall. There were 2 spots where the bowel was noted. These were all loose and filmy. I did clear all this omentum off the left lower quadrant where an additional 5 mm port was placed here. The omentum was then all taken down to the Yahir harmonic. There was no bowel near any of these areas. Once the bowel was reached, this was taken down sharply with laparoscopic Metzenbaum scissors. No thermal sources were used near the bowel at all. Our visualization was very good. She had about a 4.5 cm midline hernia from just the base of the falciform ligament down to the navel. Once we cleared off all the adhesions which took about 1.5 hours, the bowel was reinspected and found to be free of any injury. There was no bleeding noted, no enteric injury noted. Falciform ligament was taken down with the Yahir harmonic as well. A 20 x 15 cm mesh was obtained. Four preplaced cardinal stitches were placed on the mesh. This was placed in the intraperitoneal position. This was mapped out on the abdominal wall with the aid of local anesthetic needle. The cephalad and caudad transfascial sutures were grasped and held in place. The mesh was then unscrolled and the east-west sutures were held in place in a similar fashion. At this time, a tacking device was used to tack the mesh in place in a 360-degree fashion. The inner crowns were placed. The transfascial stitches were tied down. These were trimmed. Skin dimpling was released. At this time, this was reinspected. We had hemostasis noted. Of note, the mesh was centered right on the hernia with excellent 4-5 cm overlap. The scope was turned around again inspecting the bowel which was free of any injury. It was noted that the patient was developing some subcu air around her abdominal wall when this was doing on. At this time, trocars were all removed. Pneumoperitoneum was released and all ports were removed. The fascia was closed with 0 Vicryl in a [id number] fashion. Skin at all 3 ports closed with 4-0 Vicryl. Steri-Strips were applied. She was taken to the recovery room in satisfactory condition. FINDINGS AT THE TIME OF SURGERY: Incisional hernia containing omentum, non-obstructing bowel, repaired as above. CC: MD MIRANDA Weinstein
== END | disposition home or self-care (01) ==
LOC: SUR 06:54
PROVIDERS: ATTEND Surgery
DX: K43.2 Incisional hernia without obstruction or gangrene (principal); Z79.01 Long term (current) use of anticoagulants; Z86.718 Personal history of other venous thrombosis and embolism
CPT/HCPCS: 76942; J2405

== ENCOUNTER 2018-11-23 00:50 | Inpatient (IN) | payer MEDICAID ==
[2018-11-23] MEDS ORDERED: ONDANSETRON HCL IV 4 MG/2 ML VIAL IVP ONE (01:08)
[2018-11-23] MEDS ORDERED: MORPHINE SULFATE 10MG/1ML **1ML VIAL IVP ONE (01:08)
--- NOTE | 2018-11-23 01:14 | Emergency Department Record ---
History of Present Illness - General Chief Complaint: Abdominal Pain Stated Complaint: ABD PAIN Time Seen by Provider: 11/23/18 01:07 Source: Patient Mode of Arrival: Ambulatory Limitations: No limitations - History of Present Illness Initial Comments: 53 yo female presents to ED for evaluation of progressively worsening, diffuse abdominal pain symptoms and loose stools. Patient reports a history of diverticulitis s/p partial bowel resection and previous small bowel obstructions. Patient denies vomiting symptoms, fevers, chills, or urinary symptoms. Patient reports previous surgical intervention with Dr. Deppen. JUARES Complaint: Abdominal pain Onset/Timin -: Days(s) Location: Diffuse Severity scale (1-10): 7 Quality: Aching Consistency: Constant Improves With: Nothing Worsens With: Nothing Associated Symptoms: Denies other symptoms - Related Data Patient : No Allergies Allergy/AdvReac Type Severity Reaction Status Date / Time codeine Allergy ALTERED Unverified 10/12/18 09:02 MENTAL STATUS Travel Screening - Travel/Exposure Within Last 30 Days Have you traveled within the last 30 days?: No Review of Systems Constitutional: Denies: Chills, Fever, Malaise, Night sweats Eyes: Denies: Eye discharge, Eye pain ENT: Denies: Congestion, Ear pain, Epistaxis Respiratory: Denies: Cough, Dyspnea Cardiovascular: Denies: Chest pain, Dyspnea on exertion Endocrine: Denies: Fatigue, Heat or cold intolerance Gastrointestinal: Reports: Abdominal pain, Nausea. Denies: Vomiting Genitourinary: Denies: Incontinence, Retention Musculoskeletal: Denies: Arthralgia, Back pain Skin: Denies: Bruising, Change in color Neurological: Denies: Abnormal gait, Confusion, Headache, Seizure Psychiatric: Denies: Anxiety Hematological/Lymphatic: Denies: Anemia, Blood Clots Past Medical History - SOCIAL HISTORY Smoking Status: Never smoker Alcohol Use: Rare Drug Use: None - RESPIRATORY Hx Respiratory Disorders: No - CARDIOVASCULAR Hx Cardio Disorders: No - NEURO Hx Neuro Disorders: No - GI Hx GI Disorders: Yes Hx Diverticulitis: Yes - Hx Genitourinary Disorders: No - ENDOCRINE Hx Endocrine Disorders: No - MUSCULOSKELETAL Hx Musculoskeletal Disorders: No - PSYCH Hx Psych Problems: No Hx Depression: Yes - HEMATOLOGY/ONCOLOGY Hx Hematology/Oncology Disorders: No Family Medical History Any Significant Family History?: No Physical Exam - General General Appearance: Alert, Oriented x3, Cooperative, Moderate distress Limitations: No limitations - Head Head exam: Atraumatic, Normocephalic, Normal inspection Head exam detail: negative: Abrasion, Contusion, Harris's sign, General tenderness, Hematoma, Laceration - Eye Eye exam: Normal appearance. negative: Conjunctival injection, Periorbital swelling, Periorbital tenderness, Scleral icterus - ENT Ear exam: negative: Auricular hematoma, Auricular trauma Nasal Exam: negative: Active bleeding, Discharge, Foreign body Mouth exam: negative: Drooling, Laceration, Muffled voice, Tongue elevation - Neck Neck exam: Normal inspection. negative: Tenderness - Respiratory Respiratory exam: Normal lung sounds bilaterally. negative: Rales, Respiratory distress, Rhonchi, Stridor - Cardiovascular Cardiovascular Exam: Regular rate, Normal rhythm, Normal heart sounds - GI/Abdominal GI/Abdominal exam: Soft, Tenderness (Diffuse TTP on examination, no rebound or guarding symptoms.). negative: Rebound, Rigid - Rectal Rectal exam: Deferred - exam: Deferred - Extremities Extremities exam: Normal inspection. negative: Pedal edema, Tenderness - Back Back exam: Denies: CVA tenderness (R), CVA tenderness (L) - Neurological Neurological exam: Alert, Normal gait, Oriented X3 - Psychiatric Psychiatric exam: Normal affect, Normal mood - Skin Skin exam: Normal color. negative: Abrasion Type of lesion: negative: abrasion Course - Reevaluation(s) Reevaluation #1: 11/23/18 01:55 Laboratory studies were reviewed and are grossly unremarkable for an acute process except for the following: CO2 21 AG 17 Patient is currently in [address]. Reevaluation #2: 11/23/18 03:12 CT Abdomen and Pelvis: Small bowel obstruction with transition point right lower quadrant at the point of previous anastamosis. Case was discussed with Dr. Carver, will admit to medicine her at [facility] with instructions to consult if patient;'s symptoms fail to improve or worsen for possible transfer at that time. Reevaluation #3: 11/23/18 06:46 Case was discussed with Sheryl Gilbert NP, will accept admission at this time. Medical Decision Making - Lab Data Result diagrams: 11/23/18 01:10 11/23/18 01:10 Disposition Disposition: Admit Clinical Impression: SBO (small bowel obstruction) Disposition: Still a Patient at [facility] Decision to Admit: Admit from ER Decision to Admit Date: 11/23/18 Decision to Admit Time: :44 Condition: (2) Stable Time of Disposition: 03:44 Quality - Quality Measures Quality Measures: N/A - Blood Pressure Screening Does Patient Have Any of the Following: No Blood Pressure Classification: Normal BP Reading Systolic Measurement: 109 Diastolic Measurement: 74 Screening for High Blood Pressure: < Normal BP, F/U Not Required > [G8783] First Hypertensive Follow-up Interventions: Referral to alternative/primary care provider.
[2018-11-23] MEDS ORDERED: 0.9 % SODIUM CHLORIDE 1000ML 1,000 ML IV SCH (01:15)
[2018-11-23 01:34] LABS: ABSOLUTE NEUTROPHIL COUNT 7.44; BASO % 0.1 % (0-6); EOS % 1.4 % (0-6); GRAN % 78.6 % (47-80); HEMATOCRIT 43.5 % (35.0-47.0); HEMOGLOBIN 14.5 gm/dl (11.6-16.0); LYMPH % 14.1 % (16-45); MEAN CELL VOLUME 92.6 fl (81-97); MEAN CORPUSCULAR HEMOGLOBIN 30.9 pg (27-33); MEAN CORPUSCULAR HGB CONC 33.3 g/dl (32-36); MEAN PLATELET VOLUME 10.1 fl (7.4-10.4); MONO % 5.8 % (0-9); PLATELET COUNT 319 K/uL (130-400); RED CELL DISTRIBUTION WIDTH 13.6 % (11.5-14.5); WHITE BLOOD COUNT W/O DIFF 9.5 K/uL (4.2-12.2)
[2018-11-23 01:44] LABS: BLOOD UREA NITROGEN 22 mg/dL (6-20); EST GLOMERULAR FILTRATION RATE > 60 mL/min
[2018-11-23 01:45] LABS: LIPASE 24 U/L (13-60)
[2018-11-23 01:47] LABS: GLUCOSE,RANDOM 129 mg/dL (74-109)
[2018-11-23 01:49] LABS: ALB/GLOB RATIO 1.6 (1.1-1.8); ALBUMIN 4.9 g/dL (4.0-5.0); ALT/SGPT 23 U/L (<33); AST/SGOT 21 U/L (10.0-35.0)
[2018-11-23 01:50] LABS: ALKALINE PHOSPHATASE 84 U/L (35-104)
[2018-11-23] MEDS: 0.9 % SODIUM CHLORIDE 1000ML 1,000 ML IV PRN ×3 (04:25→23:50)
[2018-11-23] MEDS: ONDANSETRON HCL IV 4 MG/2 ML VIAL IVP PRN ×2 (05:29→19:08)
[2018-11-23] MEDS: MORPHINE SULFATE 10MG/1ML **1ML VIAL IVP PRN ×3 (05:32→20:13)
[2018-11-23] MEDS: SERTRALINE HCL 50 MG TABLET PO SCH (09:46)
--- NOTE | 2018-11-23 10:25 | CT SCAN REPORT ---
EXAM: CT OF THE ABDOMEN AND PELVIS WITH CONTRAST HISTORY: DIFFUSE LOWER ABDOMINAL PAIN WITH VOMITING. LOOSE STOOL FOR TWO DAYS. PRIOR COLON RESECTION. PRIOR ILEOSTOMY WITH REVERSAL. TECHNIQUE: Contrast enhanced helical CT examination of the abdomen and pelvis was performed including delayed images through the kidneys with 90 ml of Omnipaque 300 utilized. Oral contrast was not utilized limiting evaluation of bowel. Comparison: CT of the abdomen and pelvis with contrast dated 04/26/18. FINDINGS: There is minor patchy opacity within the dependent lung bases consistent with atelectasis. Minor linear scarring versus atelectasis in the anterior lung bases. The visualized lung bases are otherwise clear. No pleural or pericardial effusion. The heart is not enlarged. There is redemonstration of a tiny hypodense lesion in the subcapsular anterior segment of the mid to lower right liver lobe. This measures 4.5 mm in diameter. It is unchanged since a 11/02/17 examination. It is likely a cyst or hemangioma. The liver is otherwise normal in appearance. The pancreas, spleen, adrenal glands, and kidneys are unremarkable. No obstructive uropathy. The gallbladder is unremarkable and no biliary ductal dilatation is seen. No new intraabdominal nor retroperitoneal lymphadenopathy. The vasculature is unremarkable. There is redemonstration of a rectosigmoid anastomosis. No definite new anastomotic wall thickening. There is a possible tiny fluid collection noted along the left inferior margin of the anastomosis. This is not as well seen on the prior examination. No suspicious new solid or cystic pelvic mass nor adenopathy. No intrinsic urinary bladder abnormality is seen though evaluation is limited by lack of distention. Mild diverticulosis is scattered throughout a nondilated colon. There is redemonstration of an anastomosis of the distal small bowel in the right mid to lower abdomen. Distal to the anastomosis, the distal ileum is normal in caliber. Proximal to the anastomosis, there are multiple gas and fluid dilated small bowel loops with associated air fluid levels. Additionally there is solid stool within the segment just proximal to the anastomotic site. These findings are suspicious for obstruction. No gross bowel wall thickening is, however, seen nor is there extraluminal gas. There is redemonstration of a ventral wall hernia just above the umbilicus. This contains fat and several loops of bowel without evidence of complication. A couple tiny fat filled ventral wall hernias are noted just superior to this, unchanged. No new lytic or blastic bone lesion. IMPRESSION: 1. SMALL BOWEL OBSTRUCTION WITH TRANSITION POINT IN THE RIGHT MID TO LOWER ABDOMEN IN THE REGION OF SMALL BOWEL ANASTOMOSIS. NO ASSOCIATED GROSS WALL THICKENING OR EXTRALUMINAL AIR. 2. POST SURGICAL CHANGES IN THE RECTOSIGMOID REGION REDEMONSTRATED. 3. COLONIC DIVERTICULOSIS WITHOUT EVIDENCE OF DIVERTICULITIS. 4. MINOR PATCHY OPACITIES IN THE DEPENDENT LUNG BASES CONSISTENT WITH ATELECTASIS. 5. STABLE TOO SMALL TO CHARACTERIZE HYPODENSE LESION WITHIN THE RIGHT LIVER LOBE IS NONSPECIFIC, BUT LIKELY A CYST OR HEMANGIOMA. JOB NUMBER: [id number] [facility]
--- NOTE | 2018-11-23 11:25 | History & Physical ---
History of Present Illness - Date of Service Date of Service for History & Physical: 11/23/18 - History of Present Illness Admitting Diagnosis: Small bowel obstruction History of Present Illness: Donna Glover is a 53 y.o. F who presented to the [facility] ED on 11/23/18 d/t progressively worsening abdominal pain 8/10, loose stools and nausea. Started 4 days ago with right flank pain and feeling "poofy". Hx significant for diverticulitis with h/o partial bowel resection and previous SBOs. Previous surgical interventions with Dr. Higginbotham. In the ED, CT of abd/pelvis revealed SBO with transition point RLQ at the point of previous anastamosis. Case was discussed with Dr. Carver who indicated that the pt could admit to [facility] and to consult if symptoms worsen or fail to improve. Was started on IVF and placed in an NPO status. PCP: Dr. Kidd 11/23/18 1120 Lying in bed, A&Ox3, sleepy but arousable. Denies having passed any flatus or stool since admission. Reports that pain isn't any worse and that medication works up until about 30 minutes before she can have it again. Has been afebrile. States that she feels comfortable staying at [facility] and does not feel she needs to be transferred at this time. Travel Screening - Travel/Exposure Within Last 30 Days Have you traveled within the last 30 days?: No - Travel/Exposure Within Last Year Have you traveled outside the [place] in the last year?: No - Additonal Travel Details Have you been exposed to anyone with a communicable illness?: No - Travel Symptoms Symptom Screening: Vomiting Review of Systems Constitutional: Denies: Chills, Fever, Malaise, Night sweats Eyes: Denies: Eye discharge, Eye pain ENT: Denies: Congestion, Ear pain, Epistaxis Respiratory: Denies: Cough, Dyspnea Cardiovascular: Denies: Chest pain, Dyspnea on exertion Endocrine: Denies: Fatigue, Heat or cold intolerance Gastrointestinal: Reports: Abdominal pain. Denies: Vomiting Genitourinary: Denies: Incontinence, Retention Musculoskeletal: Denies: Arthralgia, Back pain Skin: Denies: Bruising, Change in color Neurological: Denies: Abnormal gait, Confusion, Headache, Seizure Psychiatric: Denies: Anxiety Hematological/Lymphatic: Denies: Anemia, Blood Clots Past Medical History - SOCIAL HISTORY Smoking Status: Never smoker Alcohol Use: Rare Drug Use: None - RESPIRATORY Hx Respiratory Disorders: No - CARDIOVASCULAR Hx Cardio Disorders: No - NEURO Hx Neuro Disorders: No - GI Hx GI Disorders: Yes Hx Diverticulitis: Yes - Hx Genitourinary Disorders: No - ENDOCRINE Hx Endocrine Disorders: No - MUSCULOSKELETAL Hx Musculoskeletal Disorders: No - PSYCH Hx Psych Problems: No Hx Depression: Yes - HEMATOLOGY/ONCOLOGY Hx Hematology/Oncology Disorders: No Family Medical History Any Significant Family History?: No H&P Meds/Allergies - Allergies Allergies: Allergies Allergy/AdvReac Type Severity Reaction Status Date / Time codeine Allergy ALTERED Unverified 10/12/18 09:02 MENTAL STATUS - Active Medications Active Medications: Current Medications Sodium Chloride () 1,000 mls @ 0 mls/hr IV .Q0M [facility] Last Infusion: 11/23/18 02:23 Dose: Infused Documented by: Sodium Chloride () 1,000 mls @ 100 mls/hr IV .Q10H PRN PRN Reason: LARGE VOLUME IV Last Admin: 11/23/18 04:25 Dose: 100 mls/hr Documented by: Non-Formulary Medication (Bupropion Hcl [Wellbutrin Sr]) 200 mg PO DAILY [facility] Ondansetron HCl (Zofran) 4 mg IVP Q4H PRN PRN Reason: NAUSEA Last Admin: 11/23/18 05:29 Dose: 4 mg Documented by: Sertraline HCl (Zoloft) 100 mg PO DAILY [facility] Last Admin: 11/23/18 09:46 Dose: 100 mg Documented by: Physical Exam - Vital Signs Vital Signs: Vital Signs - Last 24 Hrs Temp Pulse Resp BP Pulse Ox 11/23/18 08:00 98.9 F 86 16 113/76 92 L 11/23/18 04:20 98.5 F 80 16 109/74 98 11/23/18 03:51 75 20 119/76 94 L 11/23/18 02:30 81 16 124/76 94 L 11/23/18 01:12 98.3 F 81 16 129/93 98 - General General Appearance: Alert, Oriented x3, Cooperative, No acute distress Limitations: No limitations - Head Head exam: Atraumatic, Normocephalic, Normal inspection Head exam detail: negative: Abrasion, Contusion, Harris's sign, General tenderness, Hematoma, Laceration - Eye Eye exam: Normal appearance. negative: Conjunctival injection, Periorbital swelling, Periorbital tenderness, Scleral icterus - ENT Ear exam: negative: Auricular hematoma, Auricular trauma Nasal Exam: negative: Active bleeding, Discharge, Foreign body Mouth exam: negative: Drooling, Laceration, Muffled voice, Tongue elevation - Neck Neck exam: Normal inspection. negative: Tenderness - Respiratory Respiratory exam: Normal lung sounds bilaterally. negative: Rales, Respiratory distress, Rhonchi, Stridor - Cardiovascular Cardiovascular Exam: Regular rate, Normal rhythm, Normal heart sounds - GI/Abdominal GI/Abdominal exam: Soft, Tenderness. negative: Guarding, Rebound, Rigid - Rectal Rectal exam: Deferred - exam: Deferred - Extremities Extremities exam: Normal inspection. negative: Pedal edema, Tenderness - Back Back exam: Denies: CVA tenderness (R), CVA tenderness (L) - Neurological Neurological exam: Alert, Normal gait, Oriented X3 - Psychiatric Psychiatric exam: Normal affect, Normal mood - Skin Skin exam: Normal color. negative: Abrasion Type of lesion: negative: abrasion Results - Labs Result Diagrams: 11/23/18 01:10 11/23/18 01:10 Labs Last 24 Hours: Laboratory Results - last 24 hr 11/23/18 11/23/18 01:10 01:10 WBC 9.5 RBC 4.70 Hgb 14.5 Hct 43.5 MCV 92.6 MCH 30.9 MCHC 33.3 RDW 13.6 Plt Count 319 MPV 10.1 Gran % 78.6 Lymphocytes % 14.1 L Monocytes % 5.8 Eosinophils % 1.4 Basophils % 0.1 Absolute Neutrophils 7.44 Sodium 138 Potassium 4.1 Chloride 100 Carbon Dioxide 21.0 L Anion Gap 17.0 H BUN 22 H Creatinine 1.0 H Estimated GFR > 60 Random Glucose 129 H Calcium 9.8 Total Bilirubin 0.40 AST 21 ALT 23 Alkaline Phosphatase 84 Total Protein 8.0 Albumin 4.9 Globulin 3.1 Albumin/Globulin Ratio 1.6 Lipase 24 VTE H&P Assessment - Risk for VTE Risk for VTE: Yes Risk Level: Moderate Risk Assessment Date: 11/23/18 Risk Assessment Time: 11:00 VTE Orders Placed or Will Be Placed: Yes Plan - Inpatient Certification Inpatient Certification: Admit to inpatient care: Based on my medical assessment, after consideration of patient's risk factors (age, co-morbidities and patient presenting symptoms and acuity), I expect that this patient will remain in the hospital greater than or equal to two midnights and that the services needed warrant inpatient care because: Patient Risk Factors: [] Estimated length of stay: [] The patient may reasonably be expected to be discharged or transferred to a hospital within 96 hours after admission to [facility]. Services needed: [] Post hospital care (if known): [] I certify that my determination is in accordance with my understanding of Medicare requirements for reasonable and necessary inpatient services. - Detailed Diagnosis and Plan (1) SBO (small bowel obstruction) Current Visit: Yes Status: Acute Base Code: K56.609 - UNSP INTESTNL OBST, UNSP TO PARTIAL VERSUS COMPLETE OBST Comment: 11/23/18 -CT Abd/pelvis: SBO with transition point RLQ at the point of previous anastamosis -No fever, no elevated HR -No flatus or stool passage, continuing NPO status -IVF -Discussed Dr. Carver's recommendations and that should she feel she needs a higher level of care, a transfer can be facilitated. -IV Morphine changed to 4mg q. 3 hours PRN from 5mg q. 4h PRN (2) At risk for deep venous thrombosis Current Visit: Yes Status: Acute Base Code: Z91.89 - OTH PERSONAL RISK FACTORS, NOT ELSEWHERE CLASSIFIED Comment: 11/23/18 -SCDs ordered -Nursing to encourage ambulation (3) Full code status Current Visit: Yes Status: Acute Base Code: Z78.9 - OTHER SPECIFIED HEALTH STATUS Comment: 11/23/18 -Pt. is a full code
[2018-11-23] MEDS: BUPROPION HCL 200 MG PO SCH (15:44)
[2018-11-24] MEDS: MORPHINE SULFATE 10MG/1ML **1ML VIAL IVP PRN ×2 (01:49→15:57)
[2018-11-24 06:36] LABS: ABSOLUTE NEUTROPHIL COUNT 5.74; BASO % 0.1 % (0-6); EOS % 0.9 % (0-6); GRAN % 77.2 % (47-80); HEMATOCRIT 35.8 % (35.0-47.0); HEMOGLOBIN 11.3 gm/dl (11.6-16.0); LYMPH % 16.2 % (16-45); MEAN CELL VOLUME 95.2 fl (81-97); MEAN CORPUSCULAR HGB CONC 31.6 g/dl (32-36); MEAN PLATELET VOLUME 9.6 fl (7.4-10.4); MONO % 5.6 % (0-9); PLATELET COUNT 222 K/uL (130-400); RED BLOOD COUNT 3.76 M/uL (3.80-5.40); RED CELL DISTRIBUTION WIDTH 13.5 % (11.5-14.5); WHITE BLOOD COUNT W/O DIFF 7.5 K/uL (4.2-12.2)
[2018-11-24 06:51] LABS: ALB/GLOB RATIO 1.6 (1.1-1.8); ALBUMIN 3.7 g/dL (4.0-5.0); ALKALINE PHOSPHATASE 65 U/L (35-104); ALT/SGPT 15 U/L (<33); AST/SGOT 15 U/L (10.0-35.0); BLOOD UREA NITROGEN 14 mg/dL (6-20); CREATININE 0.9 mg/dL (0.5-0.9); EST GLOMERULAR FILTRATION RATE > 60 mL/min; GLUCOSE,RANDOM 91 mg/dL (74-109)
[2018-11-24] MEDS: SERTRALINE HCL 50 MG TABLET PO SCH (09:18)
[2018-11-24] MEDS: BUPROPION HCL 200 MG PO SCH (09:19)
[2018-11-24] MEDS: ONDANSETRON HCL IV 4 MG/2 ML VIAL IVP PRN ×2 (09:23→15:58)
--- NOTE | 2018-11-24 09:47 | Physician Progress Note ---
Subjective - Date Date of Physician Progress Note: 11/24/18 - Subjective Subjective Comment: Sitting up in bed, awake and alert. Reports feeling better today and is passing flatus. Hasn't required as much pain medication overnight. Reports the "worse case of heartburn" over night. Has been ambulating the halls frequently. Feels ready to start clear liquids. Location: Abdomen Objective - Vital Signs Vital Signs: Vital Signs - Last 24 Hrs Temp Pulse Resp BP Pulse Ox 11/24/18 08:00 98.1 F 80 15 113/74 94 L 11/23/18 23:50 81 16 108/72 96 11/23/18 20:16 16 11/23/18 19:45 97.9 F 86 16 118/76 97 11/23/18 16:00 97.7 F 81 16 110/63 98 11/23/18 12:00 97.5 F L 82 16 113/77 97 - General General Appearance: Alert, Oriented x3, Cooperative, No acute distress Limitations: No limitations - Head Head exam: Atraumatic, Normocephalic, Normal inspection Head exam detail: negative: Abrasion, Contusion, Harris's sign, General tenderness, Hematoma, Laceration - Eye Eye exam: Normal appearance. negative: Conjunctival injection, Periorbital swelling, Periorbital tenderness, Scleral icterus - ENT Ear exam: negative: Auricular hematoma, Auricular trauma Nasal Exam: negative: Active bleeding, Discharge, Foreign body Mouth exam: negative: Drooling, Laceration, Muffled voice, Tongue elevation - Neck Neck exam: Normal inspection. negative: Tenderness - Respiratory Respiratory exam: Normal lung sounds bilaterally. negative: Rales, Respiratory distress, Rhonchi, Stridor - Cardiovascular Cardiovascular Exam: Regular rate, Normal rhythm, Normal heart sounds - GI/Abdominal GI/Abdominal exam: Soft, Tenderness. negative: Guarding, Rebound, Rigid - Rectal Rectal exam: Deferred - exam: Deferred - Extremities Extremities exam: Normal inspection. negative: Pedal edema, Tenderness - Back Back exam: Denies: CVA tenderness (R), CVA tenderness (L) - Neurological Neurological exam: Alert, Normal gait, Oriented X3 - Psychiatric Psychiatric exam: Normal affect, Normal mood - Skin Skin exam: Normal color. negative: Abrasion Type of lesion: negative: abrasion Assessment and Plan - Assessment and Plan (1) Heartburn Current Visit: Yes Status: Acute Base Code: R12 - HEARTBURN Comment: 11/24/09 -Protonix 40mg IV BID (2) SBO (small bowel obstruction) Current Visit: Yes Status: Acute Base Code: K56.609 - UNSP INTESTNL OBST, UNSP TO PARTIAL VERSUS COMPLETE OBST Comment: 11/23/18 -CT Abd/pelvis: SBO with transition point RLQ at the point of previous anastamosis -Afebrile, HR in 80s, WBC 7.5 -Passing Flatus, will start Clear Liquid diet -IVF decreased to 40ml/hr -Continue IV Morphine changed to 4mg q. 3 hours PRN (3) At risk for deep venous thrombosis Current Visit: Yes Status: Acute Base Code: Z91.89 - OTH PERSONAL RISK FACTORS, NOT ELSEWHERE CLASSIFIED Comment: 11/24/18 -SCDs ordered -Lovenox 40mg subq daily -Nursing to encourage ambulation (4) Full code status Current Visit: Yes Status: Acute Base Code: Z78.9 - OTHER SPECIFIED HEALTH STATUS Comment: 11/24/18 -Pt. is a full code Results - Labs Result Diagrams: 11/24/18 06:17 11/24/18 06:17 Labs Last 24 Hours: Laboratory Results - last 24 hr 11/24/18 11/24/18 06:17 06:17 WBC 7.5 RBC 3.76 L Hgb 11.3 L Hct 35.8 MCV 95.2 MCH 30.0 MCHC 31.6 L RDW 13.5 Plt Count 222 MPV 9.6 Gran % 77.2 Lymphocytes % 16.2 Monocytes % 5.6 Eosinophils % 0.9 Basophils % 0.1 Absolute Neutrophils 5.74 Sodium 140 Potassium 4.0 Chloride 105 Carbon Dioxide 26.0 Anion Gap 9.0 BUN 14 Creatinine 0.9 Estimated GFR > 60 Random Glucose 91 Calcium 8.3 L Total Bilirubin 0.50 AST 15 ALT 15 Alkaline Phosphatase 65 Total Protein 6.0 L Albumin 3.7 L Globulin 2.3 Albumin/Globulin Ratio 1.6 DVT/PE Assessment - Risk for VTE Risk for VTE: No Risk Level: Moderate Risk Assessment Date: 11/23/18 Risk Assessment Time: 11:00 VTE Orders Placed or Will Be Placed: Yes - Active Medicaitons Current Medications: Current Medications Sodium Chloride () 1,000 mls @ 0 mls/hr IV .Q0M [facility] Last Infusion: 11/23/18 02:23 Dose: Infused Documented by: Sodium Chloride () 1,000 mls @ 100 mls/hr IV .Q10H PRN PRN Reason: LARGE VOLUME IV Last Admin: 11/23/18 23:50 Dose: 100 mls/hr Documented by: Morphine Sulfate (Morphine Sulfate) 4 mg IVP Q3H PRN PRN Reason: PAIN - MILD TO MODERATE (1-7) Last Admin: 11/24/18 01:49 Dose: 4 mg Documented by: Non-Formulary Medication (Bupropion Hcl [Wellbutrin Sr]) 200 mg PO DAILY [facility] Last Admin: 11/24/18 09:19 Dose: 200 mg Documented by: Ondansetron HCl (Zofran) 4 mg IVP Q4H PRN PRN Reason: NAUSEA Last Admin: 11/24/18 09:23 Dose: 4 mg Documented by: Sertraline HCl (Zoloft) 100 mg PO DAILY [facility] Last Admin: 11/24/18 09:18 Dose: 100 mg Documented by: AMI Plan - Labs Result Diagrams: 11/24/18 06:17 11/24/18 06:17
[2018-11-24] MEDS ORDERED: 0.9 % SODIUM CHLORIDE 1000ML 1,000 ML IV PRN ×2 (09:58→20:18)
[2018-11-24] MEDS: ENOXAPARIN 40 MG/0.4 ML SYR SQ SCH (10:12)
[2018-11-24] MEDS: PANTOPRAZOLE SODIUM IV 40 MG VIAL IVP SCH ×2 (10:12→21:08)
[2018-11-24] MEDS ORDERED: CALAMINE TOP PRN (14:10)
[2018-11-25] MEDS: ONDANSETRON HCL IV 4 MG/2 ML VIAL IVP PRN (10:29)
[2018-11-25] MEDS: ENOXAPARIN 40 MG/0.4 ML SYR SQ SCH (10:29)
[2018-11-25] MEDS: PANTOPRAZOLE SODIUM IV 40 MG VIAL IVP SCH (10:29)
--- NOTE | 2018-11-25 10:34 | Physician Progress Note ---
Subjective - Date Date of Physician Progress Note: 11/25/18 - Subjective Subjective Comment: 11/24/18 Sitting up in bed, awake and alert. Reports feeling better today and is passing flatus. Hasn't required as much pain medication overnight. Reports the "worse case of heartburn" over night. Has been ambulating the halls frequently. Feels ready to start clear liquids. 11/25/18 Sitting up in chair, A&Ox3. Did pass more flatus and very small amount of "grainy" stool yesterday after moving to clear liquids. In the evening, started feeling stomach epigastric stomach distension and flatus stopped. Changed back to NPO status. Has been doing frequent ambulation and has had decreased pain and nausea overnight. Passing small amounts of flatus today. Denis slight nauseated this morning but thinks it may be d/t feeling hungry. Drank IV Contrast Dye and is awaiting Abd/Pelvis CT. Objective - Vital Signs Vital Signs: Vital Signs - Last 24 Hrs Temp Pulse Resp BP BP Pulse Ox 11/25/18 09:00 70 16 11/25/18 07:53 97.5 F L 72 16 136/84 96 11/25/18 02:25 97.7 F 72 16 115/73 94 L 11/24/18 20:27 16 11/24/18 20:00 98.1 F 72 18 120/79 94 L 11/24/18 16:00 97.9 F 80 16 127/87 93 L 11/24/18 12:00 97.9 F 101 H 17 143/86 92 L - General General Appearance: Alert, Oriented x3, Cooperative, No acute distress Limitations: No limitations - Head Head exam: Atraumatic, Normocephalic, Normal inspection Head exam detail: negative: Abrasion, Contusion, Harris's sign, General tenderness, Hematoma, Laceration - Eye Eye exam: Normal appearance. negative: Conjunctival injection, Periorbital swelling, Periorbital tenderness, Scleral icterus - ENT Ear exam: negative: Auricular hematoma, Auricular trauma Nasal Exam: negative: Active bleeding, Discharge, Foreign body Mouth exam: negative: Drooling, Laceration, Muffled voice, Tongue elevation - Neck Neck exam: Normal inspection. negative: Tenderness - Respiratory Respiratory exam: Normal lung sounds bilaterally. negative: Rales, Respiratory distress, Rhonchi, Stridor - Cardiovascular Cardiovascular Exam: Regular rate, Normal rhythm, Normal heart sounds - GI/Abdominal GI/Abdominal exam: Soft, Hypoactive bowel sounds. negative: Guarding, Rebound, Rigid - Rectal Rectal exam: Deferred - exam: Deferred - Extremities Extremities exam: Normal inspection. negative: Pedal edema, Tenderness - Back Back exam: Denies: CVA tenderness (R), CVA tenderness (L) - Neurological Neurological exam: Alert, Normal gait, Oriented X3 - Psychiatric Psychiatric exam: Normal affect, Normal mood - Skin Skin exam: Normal color. negative: Abrasion Type of lesion: negative: abrasion Assessment and Plan - Assessment and Plan (1) Heartburn Current Visit: Yes Status: Acute Base Code: R12 - HEARTBURN Comment: 11/25/09 -Protonix 40mg IV BID (2) SBO (small bowel obstruction) Current Visit: Yes Status: Acute Base Code: K56.609 - UNSP INTESTNL OBST, UNSP TO PARTIAL VERSUS COMPLETE OBST Comment: 11/25/18 -Did not tolerate advancement to Clear Liquid diet yesterday, placed back on NPO in the evening -IVF increased to 100 ml/hr -VSS -Area of distention has changed to epigastric area. -CT Abd/pelvis with contrast to evaluate new area of distension and known SBO near anastamosis site -Continue NPO status until new CT ABD/pelvis is evaluated -Will advance to clear liquids depending on CT abd/pelvis -Will consider discharging later this evening should bowels start working -Continue IV Morphine changed to 4mg q. 3 hours PRN (3) At risk for deep venous thrombosis Current Visit: Yes Status: Acute Base Code: Z91.89 - OTH PERSONAL RISK FACTORS, NOT ELSEWHERE CLASSIFIED Comment: 11/25/18 -SCDs ordered -Lovenox 40mg subq daily -Nursing to encourage ambulation (4) Full code status Current Visit: Yes Status: Acute Base Code: Z78.9 - OTHER SPECIFIED HEALTH STATUS Comment: 11/25/18 -Pt. is a full code Results - Labs Result Diagrams: 11/24/18 06:17 11/24/18 06:17 DVT/PE Assessment - Risk for VTE Risk for VTE: Yes Risk Level: Moderate Risk Assessment Date: 11/23/18 Risk Assessment Time: 11:00 VTE Orders Placed or Will Be Placed: Yes - Active Medicaitons Current Medications: Current Medications Enoxaparin Sodium (Lovenox) 40 mg SQ DAILY [facility] Last Admin: 11/24/18 10:12 Dose: 40 mg Documented by: Sodium Chloride () 1,000 mls @ 0 mls/hr IV .Q0M MEENA Last Infusion: 11/23/18 02:23 Dose: Infused Documented by: Sodium Chloride () 1,000 mls @ 100 mls/hr IV .Q10H PRN PRN Reason: LARGE VOLUME IV Last Admin: 11/25/18 02:25 Dose: 100 mls/hr Documented by: Morphine Sulfate (Morphine Sulfate) 4 mg IVP Q3H PRN PRN Reason: PAIN - MILD TO MODERATE (1-7) Last Admin: 11/24/18 15:57 Dose: 4 mg Documented by: Non-Formulary Medication (Bupropion Hcl [Wellbutrin Sr]) 200 mg PO DAILY [facility] Last Admin: 11/24/18 09:19 Dose: 200 mg Documented by: Ondansetron HCl (Zofran) 4 mg IVP Q4H PRN PRN Reason: NAUSEA Last Admin: 11/24/18 15:58 Dose: 4 mg Documented by: Pantoprazole Sodium (Protonix Iv) 40 mg IVP Q12H MEENA Last Admin: 11/24/18 21:08 Dose: 40 mg Documented by: Patient Own Med: (Calamine Lotion) 1 each TOP ASDIR PRN PRN Reason: RASH Last Admin: 11/24/18 14:25 Dose: 1 each Documented by: Sertraline HCl (Zoloft) 100 mg PO DAILY [facility] Last Admin: 11/24/18 09:18 Dose: 100 mg Documented by: AMI Plan - Labs Result Diagrams: 11/24/18 06:17 11/24/18 06:17
[2018-11-25] MEDS: BUPROPION HCL 200 MG PO SCH (14:56)
[2018-11-25] MEDS: SERTRALINE HCL 50 MG TABLET PO SCH (14:56)
--- NOTE | 2018-11-25 17:24 | Discharge Summary ---
Providers Discharge Summary Date: 11/25/18 Date of admission: 11/23/18 03:59 Attending physician: DEBORA KIDD Primary care physician: DEBORA KIDD Physical Exam - Vital Signs Vital Signs: Vital Signs - Last 24 Hrs Temp Pulse Resp BP BP Pulse Ox 11/25/18 14:59 97.7 F 74 17 136/89 98 11/25/18 09:00 70 16 11/25/18 07:53 97.5 F L 72 16 136/84 96 11/25/18 02:25 97.7 F 72 16 115/73 94 L 11/24/18 20:27 16 11/24/18 20:00 98.1 F 72 18 120/79 94 L - General General Appearance: Alert, Oriented x3, Cooperative, No acute distress Limitations: No limitations - Head Head exam: Atraumatic, Normocephalic, Normal inspection Head exam detail: negative: Abrasion, Contusion, Harris's sign, General tenderness, Hematoma, Laceration - Eye Eye exam: Normal appearance. negative: Conjunctival injection, Periorbital swelling, Periorbital tenderness, Scleral icterus - ENT Ear exam: negative: Auricular hematoma, Auricular trauma Nasal Exam: negative: Active bleeding, Discharge, Foreign body Mouth exam: negative: Drooling, Laceration, Muffled voice, Tongue elevation - Neck Neck exam: Normal inspection. negative: Tenderness - Respiratory Respiratory exam: Normal lung sounds bilaterally. negative: Rales, Respiratory distress, Rhonchi, Stridor - Cardiovascular Cardiovascular Exam: Regular rate, Normal rhythm, Normal heart sounds - GI/Abdominal GI/Abdominal exam: Soft, Hypoactive bowel sounds. negative: Guarding, Rebound, Rigid - Rectal Rectal exam: Deferred - exam: Deferred - Extremities Extremities exam: Normal inspection. negative: Pedal edema, Tenderness - Back Back exam: Denies: CVA tenderness (R), CVA tenderness (L) - Neurological Neurological exam: Alert, Normal gait, Oriented X3 - Psychiatric Psychiatric exam: Normal affect, Normal mood - Skin Skin exam: Normal color. negative: Abrasion Type of lesion: negative: abrasion Hospitalization - Hospitalization Admission Diagnosis: Small bowel obstruction - Problem List/Discharge Diagnosis (1) Heartburn Status: Acute Base Code: R12 - HEARTBURN Comment: 11/25/09 -Protonix 40mg IV BID (2) SBO (small bowel obstruction) Status: Acute Base Code: K56.609 - UNSP INTESTNL OBST, UNSP TO PARTIAL VERSUS COMPLETE OBST Comment: 11/25/18 -Vital signs remain stable -CT of abd/pelvis with contrast on 11/25/18: interval resolution of SBO, now read as bowel wall thickening -Tolerated clears following CT and had 2 large bowel movements with mixed solid and diarrhea -Pt reports having [place] and Zofran at home if needed (3) At risk for deep venous thrombosis Status: Acute Base Code: Z91.89 - OTH PERSONAL RISK FACTORS, NOT ELSEWHERE CLASSIFIED Comment: 11/25/18 -SCDs ordered -Lovenox 40mg subq daily -Nursing to encourage ambulation (4) Full code status Status: Acute Base Code: Z78.9 - OTHER SPECIFIED HEALTH STATUS Comment: 11/25/18 -Pt. is a full code - Hospitalization Course Disposition: Home, Self-Care Hospital Course: Donna Glover is a 53 y.o. F who presented to the [facility] ED on 11/23/18 d/t progressively worsening abdominal pain 8/10, loose stools and nausea. Started 4 days ago with right flank pain and feeling "poofy". Hx significant for diverticulitis with h/o partial bowel resection and previous SBOs. Previous surgical interventions with Dr. Higginbotham. In the ED, CT of abd/pelvis revealed SBO with transition point RLQ at the point of previous anastamosis. Case was discussed with Dr. Carver who indicated that the pt could admit to [facility] and to consult if symptoms worsen or fail to improve. Was started on IVF and placed in an NPO status. PCP: Dr. Kidd 11/23/18 1120 Lying in bed, A&Ox3, sleepy but arousable. Denies having passed any flatus or stool since admission. Reports that pain isn't any worse and that medication works up until about 30 minutes before she can have it again. Has been afebrile. States that she feels comfortable staying at [facility] and does not feel she needs to be transferred at this time. 11/24/18 Sitting up in bed, awake and alert. Reports feeling better today and is passing flatus. Hasn't required as much pain medication overnight. Reports the "worse case of heartburn" over night. Has been ambulating the halls frequently. Feels ready to start clear liquids. 11/25/18 Sitting up in chair, A&Ox3. Did pass more flatus and very small amount of "grainy" stool yesterday after moving to clear liquids. In the evening, started feeling epigastric stomach distension and flatus stopped. Changed back to NPO status. Has been doing frequent ambulation and has had decreased pain and nausea overnight. Passing small amounts of flatus today. Denis slight nauseated this morning but thinks it may be d/t feeling hungry. Drank IV Contrast Dye and is awaiting Abd/Pelvis CT. 11/25/[address] abd/pelvis which indicated resolution of SBO and was now read as wall thickening. Nursing staff reported that pt had 2 large BM's of mixed consistency with formed and diarrhea. Pt denies having much discomfort. Would like to d/c home, already has [place] and Zofran to use as needed, if needed. Procedures: Imaging and X-Rays 11/23/18 01:08 ABDOMEN/PELVIS W CONTRAST [CT] Stat 11/25/18 09:12 ABDOMEN/PELVIS W CONTRAST [CT] Stat Abnormal Labs: Abnormal Lab Results 11/23/18 11/23/18 11/24/18 Range/Units 01:10 01:10 06:17 RBC 3.76 L (3.80-5.40) M/uL Hgb 11.3 L (11.6-16.0) gm/dl MCHC 31.6 L (32-36) g/dl Lymphocytes % 14.1 L (16-45) % Carbon Dioxide 21.0 L (22-29) mmol/L Anion Gap 17.0 H (7-16) BUN 22 H (6-20) mg/dL Creatinine 1.0 H (0.5-0.9) mg/dL Random Glucose 129 H (74-109) mg/dL Calcium (8.6-10.0) mg/dL Total Protein (6.6-8.7) g/dL Albumin (4.0-5.0) g/dL 11/24/18 Range/Units 06:17 RBC (3.80-5.40) M/uL Hgb (11.6-16.0) gm/dl MCHC (32-36) g/dl Lymphocytes % (16-45) % Carbon Dioxide (22-29) mmol/L Anion Gap (7-16) BUN (6-20) mg/dL Creatinine (0.5-0.9) mg/dL Random Glucose (74-109) mg/dL Calcium 8.3 L (8.6-10.0) mg/dL Total Protein 6.0 L (6.6-8.7) g/dL Albumin 3.7 L (4.0-5.0) g/dL Condition at Discharge: (2) Stable Discharge Medications - Discharge Medications Home Medications: Ambulatory Orders Cholecalciferol (Vitamin D3) [Vitamin D3] 1 tab PO WEEKLY 04/26/18 [Last Taken Unknown] Discharge Plan - Discharge Instructions Activity at Discharge: Increase Activity as Tolerated Diet at Discharge: Advance to Usual Diet Instructions: Clear Liquid Diet (DC), Bowel Obstruction (DC), Atelectasis (DC) Additional Instructions: Continue on a clear liquid diet for 1-2 days and then slowly advance diet. Schedule an appointment to see Dr. Kidd within 1-2 weeks of discharge from the hospital. Mariajose, [employer], will call you at home and can schedule an appointment with you at that time. Quality Measures - Quality Measures Quality Measures: Documentation of Current Medications in Medical Record, Screening for High Blood Pressure and F/U Documented - Current Medications Quality Measure: Measure #130: Documentation of Current Medications Documentation of Current Medications: <Current Medications Documented/Reviewed> [G8427] - Blood Pressure Screening Quality Measure: Screening for High Blood Pressure and Follow-Up Documented Does Patient Have Any of the Following: No Blood Pressure Classification: Pre-Hypertensive BP Reading Systolic Measurement: 136 Diastolic Measurement: 89 Screening for High Blood Pressure: < Pre-Hypertensive BP, F/U Documented > [G8950] Pre-Hypertensive Follow-up Interventions: Referral to alternative/primary care provider. - Elder Abuse Suspicion Index EASI Reference Information: Phylicia GATES, Kimberly C, Sherice D, Lolly Swanson.Development and validation of a tool to assist physicians identification of elder abuse: The Elder Abuse Suspicion Index (EASI ). Journal of Elder Abuse and Neglect, 2008; 20 (3): 276-300.
--- NOTE | 2018-11-27 18:03 | CT SCAN REPORT ---
EXAM: CT SCAN ABDOMEN/PELVIS W CONTRAST HISTORY: FOLLOW-UP SMALL BOWEL OBSTRUCTION. TECHNIQUE: Following oral and intravenous contrast administration, helical CT examination of the abdomen and pelvis is performed with 95 mL of Omnipaque-300 utilized. COMPARISON: CT abdomen and pelvis with contrast dated 11/23/2018. FINDINGS: Tiny dependent pleural effusions are noted in each hemithorax base, new in the interval. Minor patchy opacities in the dependent lung bases have slightly worsened in the interval, likely relating to atelectasis. Minor linear atelectasis vs. scarring is again noted within the inferior aspects of the lingula and right middle. New linear atelectasis within the anterolateral left lower lobe. No pericardial effusion. The heart is not enlarged. A tiny hypodense lesion within the subcapsular anterior segment of the mid right to lower liver lobe is redemonstrated measuring 4.5 mm. It is nonspecific but likely a cyst or hemangioma. The liver is otherwise normal in appearance. The spleen, pancreas, adrenal glands, and kidneys are unremarkable. No obstructive uropathy. The gallbladder is unremarkable and no biliary ductal dilatation is seen. No new intraabdominal nor retroperitoneal lymphadenopathy is demonstrated. The portal vein appears patent. The abdominal aorta and iliac arteries are without aneurysmal dilatation. They appear widely patent. No new pelvic mass, lymphadenopathy, or free pelvic fluid is seen. The uterus is in the midline. The ovaries are not enlarged. No intrinsic urinary bladder abnormality is identified, though evaluation is limited by incompletely distention. There has been interval clearing of the previously demonstrated dilated mid to distal small bowel loops. Currently there is no bowel dilatation nor gross bowel wall thickening. A small bowel anastomosis is again noted within the right mid to lower abdomen. A fatty ileocecal valve is present. The appendix is visualized and normal in appearance, opacified. Bowel contrast is present, primarily within the colon. Colonic diverticulosis is again noted without evidence of diverticulitis. No free intraperitoneal air. There is again noted a wide-mouthed midline ventral wall hernia above the umbilicus with the hernia sac containing fat and small bowel loops. It appears uncomplicated. A couple additional tiny fat-filled ventral wall hernias are noted superior to this, stable. No new lytic or blastic bone lesion. IMPRESSION: 1. INTERVAL RESOLUTION OF THE PREVIOUSLY DEMONSTRATED SMALL BOWEL OBSTRUCTION. 2. THERE IS DENSE MATERIAL NOW NOTED WITHIN THE GALLBLADDER LUMEN, LIKELY RELATING TO VICARIOUS EXCRETION OF CONTRAST FROM PREVIOUS CT. 3. NEW TINY DEPENDENT BASILAR PLEURAL EFFUSIONS. MINOR BIBASILAR ATELECTASIS, SLIGHTLY WORSENED IN THE INTERVAL. 4. OTHERWISE, NO CHANGE. JOB NUMBER: [id number] [facility]
== END 2018-11-25 15:27 | disposition home or self-care (01) | DRG 390 ==
LOC: ER 00:50 → MEDSURG 03:59
PROVIDERS: ADMIT Internal Medicine; ATTEND Internal Medicine
DX: K56.609 Unspecified intestinal obstruction, unspecified as to partial versus complete obstruction (principal); R12 Heartburn; R19.7 Diarrhea, unspecified; Z91.89 Other specified personal risk factors, not elsewhere classified; Z78.9 Other specified health status; Z87.19 Personal history of other diseases of the digestive system
CPT/HCPCS: 74177; 80053; 83690; 85025; 94010; 96361; 96374; 96375; 99223; 99233; 99285; C9113; J1650; J2270; J2405; J7030

== ENCOUNTER 2018-12-29 19:57 | Emergency (ER) | payer MEDICAID ==
[2018-12-29 20:22] LABS: ABSOLUTE NEUTROPHIL COUNT 3.17; BASO % 0.2 % (0-6); EOS % 2.3 % (0-6); GRAN % 60.3 % (47-80); HEMATOCRIT 42.7 % (35.0-47.0); LYMPH % 28.4 % (16-45); MEAN CORPUSCULAR HEMOGLOBIN 30.2 pg (27-33); MEAN CORPUSCULAR HGB CONC 32.8 g/dl (32-36); MEAN PLATELET VOLUME 9.9 fl (7.4-10.4); MONO % 8.8 % (0-9); PLATELET COUNT 298 K/uL (130-400); RED BLOOD COUNT 4.64 M/uL (3.80-5.40); RED CELL DISTRIBUTION WIDTH 13.4 % (11.5-14.5); WHITE BLOOD COUNT W/O DIFF 5.3 K/uL (4.2-12.2)
[2018-12-29 20:22] LABS: URINE APPEARANCE CLEAR; URINE BILIRUBIN MODERATE (NEGATIVE); URINE BLOOD NEGATIVE (NEGATIVE); URINE COLOR YELLOW; URINE GLUCOSE (UA) NEGATIVE (NEGATIVE); URINE KETONE TRACE (NEGATIVE); URINE LEUKOCYTE ESTERASE NEGATIVE (NEGATIVE); URINE NITRITE NEGATIVE (NEGATIVE); URINE PROTEIN TRACE (NEGATIVE)
[2018-12-29] MEDS ORDERED: 0.9 % SODIUM CHLORIDE 1,000 ML BAG IV ONE (20:22)
[2018-12-29] MEDS ORDERED: ONDANSETRON HCL IV 4 MG/2 ML VIAL IV ONE (20:22)
[2018-12-29] MEDS ORDERED: KETOROLAC 30 MG/ML VIAL IVP ONE (20:26)
[2018-12-29 20:32] LABS: BLOOD UREA NITROGEN 16 mg/dL (6-20)
[2018-12-29 20:33] LABS: EST GLOMERULAR FILTRATION RATE > 60 mL/min; TOTAL PROTEIN 7.9 g/dL (6.6-8.7)
[2018-12-29 20:35] LABS: GLUCOSE,RANDOM 87 mg/dL (74-109)
[2018-12-29 20:38] LABS: ALB/GLOB RATIO 1.7 (1.1-1.8); ALKALINE PHOSPHATASE 80 U/L (35-104); ALT/SGPT 25 U/L (<33); AST/SGOT 26 U/L (10.0-35.0)
--- NOTE | 2018-12-29 20:58 | Emergency Department Record ---
History of Present Illness - General Chief Complaint: Abdominal Pain Stated Complaint: NAUSEA Time Seen by Provider: 12/29/18 20:22 Source: Patient Mode of Arrival: Ambulatory Limitations: No limitations - History of Present Illness Initial Comments: pt c/o ap in rlq that is constant. she has anorexia, loose stools. she has had multiple abd surgeries including bowel resction and hernia surgery. she also has a hx of diverticulitis. she called dr billy and he told her to come in here MD Complaint: Abdominal pain Onset/Timin -: Days(s) Location: RLQ Migration to: No migration, RLQ Severity: Mild Severity scale (1-10): 2 Quality: Aching Consistency: Intermittent Improves With: Nothing Worsens With: Eating Context: Other Associated Symptoms: Denies other symptoms - Related Data LMP (females 10-50): Unknown Patient : No Allergies Allergy/AdvReac Type Severity Reaction Status Date / Time codeine Allergy ALTERED Unverified 12/01/18 08:19 MENTAL STATUS Travel Screening - Travel/Exposure Within Last 30 Days Have you traveled within the last 30 days?: No - Travel Symptoms Symptom Screening: Stomach Pain Review of Systems Reviewed: No additional complaints except as noted below Constitutional: Reports: As per HPI. Denies: Chills, Fever, Malaise, Night sweats, Weakness, Weight change Eyes: Reports: As per HPI. Denies: Eye discharge, Eye pain, Photophobia, Vision change ENT: Reports: As per HPI. Denies: Congestion, Dental pain, Ear pain, Epistaxis, Hearing loss, Throat pain Respiratory: Reports: As per HPI. Denies: Cough, Dyspnea, Hemoptysis, Stridor, Wheezes Cardiovascular: Reports: As per HPI. Denies: Arrhythmia, Chest pain, Dyspnea on exertion, Edema, Murmurs, Orthopnea, Palpitations, Paroxysmal nocturnal dyspnea, Rheumatic Fever, Syncope Endocrine: Reports: As per HPI. Denies: Fatigue, Heat or cold intolerance, Polydipsia, Polyuria Gastrointestinal: Reports: As per HPI. Denies: Abdominal pain, Constipation, Diarrhea, Hematemesis, Hematochezia, Melena, Nausea, Vomiting Genitourinary: Reports: As per HPI. Denies: Abnormal menses, Discharge, Dyspareunia, Dysuria, Frequency, Hematuria, Incontinence, Retention, Urgency Musculoskeletal: Reports: As per HPI. Denies: Arthralgia, Back pain, Gout, Joint swelling, Myalgia, Neck pain Skin: Reports: As per HPI. Denies: Bruising, Change in color, Change in hair/nails, Lesions, Pruritus, Rash Neurological: Reports: As per HPI. Denies: Abnormal gait, Confusion, Headache, Numbness, Paresthesias, Seizure, Tingling, Tremors, Vertigo, Weakness Psychiatric: Reports: As per HPI. Denies: Anxiety, Auditory hallucinations, Depression, Homicidal thoughts, Suicidal thoughts, Visual hallucinations Hematological/Lymphatic: Reports: As per HPI. Denies: Anemia, Blood Clots, Easy bleeding, Easy bruising, Swollen glands Past Medical History - SOCIAL HISTORY Smoking Status: Never smoker Alcohol Use: Rare Drug Use: None - RESPIRATORY Hx Respiratory Disorders: Yes Hx Pneumonia: Yes - CARDIOVASCULAR Hx Cardio Disorders: No - NEURO Hx Neuro Disorders: No - GI Hx GI Disorders: Yes Hx Diverticulitis: Yes - Hx Genitourinary Disorders: No - ENDOCRINE Hx Endocrine Disorders: No - MUSCULOSKELETAL Hx Musculoskeletal Disorders: No - PSYCH Hx Psych Problems: Yes Hx Depression: Yes - HEMATOLOGY/ONCOLOGY Hx Hematology/Oncology Disorders: No Family Medical History Any Significant Family History?: No Family Hx Comment (NOT TO BE USED IN PLACE OF ITEMS BELOW): DENIES Physical Exam - General General Appearance: Alert, Oriented x3, Cooperative, Mild distress - Head Head exam: Normal inspection - Eye Eye exam: Normal appearance, PERRL, EOMI Pupils: Normal accommodation - ENT ENT exam: Normal exam, Mucous membranes moist, Normal external ear exam, Normal orophraynx Ear exam: Normal external inspection. negative: External canal tenderness Nasal Exam: Normal inspection. negative: Discharge, Sinus tenderness Mouth exam: Normal external inspection, Tongue normal Teeth exam: Normal inspection. negative: Dental caries Throat exam: Normal inspection. negative: Tonsillar erythema, Tonsillar exudate - Neck Neck exam: Normal inspection, Full ROM. negative: Tenderness - Respiratory Respiratory exam: Normal lung sounds bilaterally. negative: Respiratory distress - Cardiovascular Cardiovascular Exam: Regular rate, Normal rhythm, Normal heart sounds - GI/Abdominal GI/Abdominal exam: Soft, Normal bowel sounds, Tenderness (rlq) - Rectal Rectal exam: Deferred - exam: Deferred - Extremities Extremities exam: Normal inspection, Full ROM, Normal capillary refill. negative: Tenderness - Back Back exam: Reports: Normal inspection, Full ROM. Denies: Muscle spasm, Rash noted, Tenderness - Neurological Neurological exam: Alert, CN II-XII intact, Normal gait, Oriented X3 - Psychiatric Psychiatric exam: Normal affect, Normal mood - Skin Skin exam: Dry, Intact, Normal color, Warm Course Vital Signs 12/29/18 20:20 Temperature 98.4 F Pulse Rate [ 86 Pulse Ox Probe] Respiratory 18 Rate Blood Pressure 135/91 [Right Arm] Pulse Ox 94 L - Reevaluation(s) Reevaluation #1: 12/29/18 21:36 pt feels better Reevaluation #2: 12/29/18 21:37 ct neg Medical Decision Making - Lab Data Result diagrams: 12/29/18 20:15 12/29/18 20:15 Lab Results 12/29/18 12/29/18 12/29/18 Range/Units 20:13 20:15 20:15 WBC 5.3 (4.2-12.2) K/uL RBC 4.64 (3.80-5.40) M/uL Hgb 14.0 (11.6-16.0) gm/dl Hct 42.7 (35.0-47.0) % MCV 92.0 (81-97) fl MCH 30.2 (27-33) pg MCHC 32.8 (32-36) g/dl RDW 13.4 (11.5-14.5) % Plt Count 298 (130-400) K/uL MPV 9.9 (7.4-10.4) fl Gran % 60.3 (47-80) % Lymphocytes % 28.4 (16-45) % Monocytes % 8.8 (0-9) % Eosinophils % 2.3 (0-6) % Basophils % 0.2 (0-6) % Absolute Neutrophils 3.17 Sodium 141 (136-145) mmol/L Potassium 3.9 (3.4-4.5) mmol/L Chloride 101 (98-107) mmol/L Carbon Dioxide 24.0 (22-29) mmol/L Anion Gap 16.0 (7-16) BUN 16 (6-20) mg/dL Creatinine 1.0 H (0.5-0.9) mg/dL Estimated GFR > 60 mL/min Random Glucose 87 (74-109) mg/dL Calcium 9.4 (8.6-10.0) mg/dL Total Bilirubin 0.70 (0.2-1.0) mg/dL AST 26 (10.0-35.0) U/L ALT 25 (<33) U/L Alkaline Phosphatase 80 (35-104) U/L Total Protein 7.9 (6.6-8.7) g/dL Albumin 5.0 (4.0-5.0) g/dL Globulin 2.9 (1.4-4.8) gm/dL Albumin/Globulin Ratio 1.7 (1.1-1.8) Urine Color Yellow Urine Appearance Clear Urine pH 6.0 (5.0-8.0) Ur Specific [place] >= 1.030 (1.002-1.030) Urine Protein Trace H (NEGATIVE) Urine Glucose (UA) Negative (NEGATIVE) Urine Ketones Trace H (NEGATIVE) Urine Blood Negative (NEGATIVE) Urine Nitrite Negative (NEGATIVE) Urine Bilirubin Moderate H (NEGATIVE) Urine Urobilinogen 1.0 (0.20 - 1.00) E.U./dL Ur Leukocyte Esterase Negative (NEGATIVE) Disposition Disposition: Discharge Clinical Impression: Abdominal pain Qualifiers: Abdominal location: right lower quadrant Qualified Code(s): R10.31 - Right lower quadrant pain Disposition: Home, Self-Care Condition: (1) Good Instructions: Abdominal Pain (ED) Additional Instructions: follow up with family doctor. return sooner if worse Forms: Patient Portal Access Quality - Quality Measures Quality Measures: N/A - Blood Pressure Screening Does Patient Have Any of the Following: No Blood Pressure Classification: Normal BP Reading Systolic Measurement: 109 Diastolic Measurement: 68 Screening for High Blood Pressure: < Normal BP, F/U Not Required > [G8783]
--- NOTE | 2018-12-30 15:02 | CT SCAN REPORT ---
EXAM: CT OF THE ABDOMEN AND PELVIS WITHOUT CONTRAST HISTORY: NAUSEA AFTER EATING AND DRINKING. HISTORY OF OBSTRUCTION. TECHNIQUE: CT of the abdomen and pelvis was obtained without contrast. Comparison: 11/25/18. FINDINGS: LUNG BASES: Clear. LIVER: Unremarkable appearance. GALLBLADDER: Normal. BILIARY TREE: Normal. PANCREAS: No inflammation or ductal dilatation. SPLEEN: Normal. ADRENAL GLANDS: Normal. KIDNEYS: No hydronephrosis, stone or edema. RETROPERITONEUM: There is no adenopathy or mass. AORTA: Shows no aneurysm. ABDOMINAL WALL: Midline ventral hernia involves small bowel like on previous exam, but there is no incarceration or complication. STOMACH: Unremarkable. SMALL BOWEL: No distention, wall thickening or inflammation. The terminal ileum is normal. Small bowel anastomosis in the right lower quadrant shows no stricture or complication. COLON: No distention, wall thickening, or inflammation. GI TRACT: Anastomosis in the distal sigmoid colon is patent without complication. RECTUM: Normal. BLADDER: Unremarkable. No adnexal mass or cyst. PELVIS: Shows no sign of suspicious bone lesion. LUMBAR SPINE: Shows no suspicious findings. MESENTERY: No free air or fluid. No adenopathy. IMPRESSION: NO SIGN OF ANY SPECIFIC ACUTE ABDOMEN OR PELVIS PATHOLOGY. NO NEPHROLITHIASIS OR OBSTRUCTIVE UROPATHY. NO BOWEL OBSTRUCTION. JOB NUMBER: [id number] MTDD
== END 2018-12-29 21:47 | disposition home or self-care (01) ==
LOC: ER 19:57
DX: R10.31 Right lower quadrant pain (principal)
CPT/HCPCS: 99284; 96374; 96375; 99283; 85025; 80053; 81003; 74176; J1885; J2405; J7030